=== PATIENT | female | born 1955 | race Caucasian/White ===

== ENCOUNTER → 2017-01-24 | Outpatient (CLI) | payer MEDICARE ==
[2017-01-24 12:52] LABS: ABSOLUTE EOSINOPHILS # (AUTO) 0.5 10^3/uL (0.0-0.6); ABSOLUTE LYMPHOCYTES (AUTO) 2.3 10^3/uL (0.5-4.7); ABSOLUTE MONOCYTES (AUTO) 0.4 10^3/uL (0.1-1.4); ABSOLUTE NEUT (AUTO) 3.3 10^3/uL (1.7-8.2); BASOPHILS % (AUTO) 0.7 % (0-2); EOSINOPHILS % (AUTO) 7.3 % (0-6); HEMATOCRIT 39.4 % (36.0-47.0); HEMOGLOBIN 13.2 g/dL (12.0-15.5); HGB HCT DIFFERENCE 0.2; LYMPHOCYTES % (AUTO) 35.5 % (13-45); MEAN CORPUSCULAR HEMOGLOBIN 29.2 pg (27.0-33.4); MEAN CORPUSCULAR HGB CONC 33.6 g/dL (32.0-36.0); MEAN CORPUSCULAR VOLUME 87 fl (80-97); MONOCYTES % (AUTO) 5.9 % (3-13); RED BLOOD COUNT 4.53 10^6/uL (3.72-5.28); RED CELL DISTRIBUTION WIDTH 14.3 % (11.5-14.0); SEGMENTED NEUTROPHILS % (AUTO) 50.6 % (42-78); WHITE BLOOD COUNT 6.4 10^3/uL (4.0-10.5)
[2017-01-24 13:03] LABS: APPEARANCE,URINE CLEAR; BILIRUBIN,URINE NEGATIVE (NEGATIVE); GLUCOSE, URINE NEGATIVE (NEGATIVE); KETONES,URINE NEGATIVE (NEGATIVE); LEUKOCYTE ESTERASE,URINE NEGATIVE (NEGATIVE); NITRITE,URINE NEGATIVE (NEGATIVE); PROTEIN,URINE NEGATIVE (NEGATIVE); URINE SPECIFIC GRAVITY 1.003; UROBILINOGEN,URINE NEGATIVE mg/dL (<2.0)
[2017-01-24 13:13] LABS: ANION GAP 11 (5-19); BLOOD UREA NITROGEN 13 mg/dL (7-20); CARBON DIOXIDE 27 mmol/L (22-30); CHLORIDE 104 mmol/L (98-107); CREATININE RESULT 0.79 mg/dL (0.52-1.25); GLUCOSE 100 mg/dL (75-110); SODIUM 142.1 mmol/L (137-145)
--- NOTE | 2017-01-25 09:19 | EKG REPORT ---
SEVERITY:- ABNORMAL ECG - ATRIAL-SENSED VENTRICULAR-PACED COMPLEXES : Confirmed by: Russell Hahn MD 25-Jan-2017 09:18:31
== END ==
LOC: OD 11:42
PROVIDERS: ATTEND Orthopaedic Surgery
DX: Z01.810 Encounter for preprocedural cardiovascular examination (principal); Z01.811 Encounter for preprocedural respiratory examination; Z01.818 Encounter for other preprocedural examination; Z79.899 Other long term (current) drug therapy; E11.9 Type 2 diabetes mellitus without complications; M16.12 Unilateral primary osteoarthritis, left hip
CPT/HCPCS: 36415; 71020; 80048; 81001; 83036; 85025; 93005; 93010

== ENCOUNTER 2017-03-04 05:26 | Inpatient (IN) | payer MEDICARE ==
[2017-02-21 12:30] LABS: APPEARANCE,URINE CLEAR; BILIRUBIN,URINE NEGATIVE (NEGATIVE); GLUCOSE, URINE NEGATIVE (NEGATIVE); KETONES,URINE NEGATIVE (NEGATIVE); LEUKOCYTE ESTERASE,URINE TRACE (NEGATIVE); NITRITE,URINE NEGATIVE (NEGATIVE); PROTEIN,URINE NEGATIVE (NEGATIVE); URINE SPECIFIC GRAVITY 1.002; UROBILINOGEN,URINE NEGATIVE mg/dL (<2.0)
[2017-02-21 12:35] LABS: HEMATOCRIT 38.8 % (36.0-47.0); HGB HCT DIFFERENCE 0.2; MEAN CORPUSCULAR HEMOGLOBIN 29.5 pg (27.0-33.4); MEAN CORPUSCULAR HGB CONC 33.5 g/dL (32.0-36.0); MEAN CORPUSCULAR VOLUME 88 fl (80-97); RED BLOOD COUNT 4.41 10^6/uL (3.72-5.28); RED CELL DISTRIBUTION WIDTH 13.9 % (11.5-14.0); WHITE BLOOD COUNT 6.5 10^3/uL (4.0-10.5)
[2017-02-21 13:00] LABS: ANION GAP 14 (5-19); BLOOD UREA NITROGEN 12 mg/dL (7-20); CALCIUM 9.9 mg/dL (8.4-10.2); CARBON DIOXIDE 27 mmol/L (22-30); CHLORIDE 102 mmol/L (98-107); GLUCOSE 105 mg/dL (75-110); POTASSIUM 4.6 mmol/L (3.6-5.0); SODIUM 142.8 mmol/L (137-145)
[~2017-03-04 05:26] MED LIST: BUPIVACAINE INJ/PF LIPOSOME/PF 266 MG/20 ML SDV IJ PRN; LACTATED RINGERS 1000 ML IV PRN; LIDOCAINE 0.5% INJ-PF (5 MG/ML) 50 ML SDV SUBCUT PRN
[2017-03-04] MEDS: OXYCODONE HCL SR 10 MG TABLET PO PRN ×2 (05:30→19:29)
[2017-03-04] MEDS: LANSOPRAZOLE 15 MG TAB.RAP.DR PO PRN ×3 (05:30→19:58)
[2017-03-04] MEDS: SCOPOLAMINE HYDROBROMIDE 1.5 MG PATCH.TD72 TOP PRN ×2 (05:30→19:29)
[2017-03-04] MEDS: VANCOMYCIN HCL 1,000 MG in DEXTROSE 5%-WATER 250 ML IV PRN ×2 (06:00→19:29)
[2017-03-04] MEDS ORDERED: FENTANYL CITRATE INJ/PF 100 MCG/2 ML AMPUL ONE (06:53)
[2017-03-04] MEDS ORDERED: MIDAZOLAM 2 MG/2 ML INJ ONE (06:54)
[2017-03-04] MEDS ORDERED: PROPOFOL INJ 200 MG/20 ML VIAL IV ONE (06:54)
[2017-03-04] MEDS ORDERED: TRANEXAMIC ACID INJ/PF 1,000 MG/10 ML SDV IV ONE (06:54)
[2017-03-04] MEDS ORDERED: MORPHINE SULFATE 10 MG/ML INJ ONE (06:55)
[2017-03-04] MEDS ORDERED: BUPIVACAINE INJ/PF LIPOSOME/PF 266 MG/20 ML SDV ONE (07:09)
[2017-03-04] MEDS ORDERED: THROMBIN (BOVINE) 5000 UNIT EPITAXIS KIT ONE (07:09)
[2017-03-04] MEDS ORDERED: THROMBIN (BOVINE) TOPICAL 20000 UNIT VIAL ONE (07:09)
[2017-03-04] MEDS: CEFAZOLIN INJ 1 GM VIAL INJ PRN ×4 (07:26→19:58)
[2017-03-04] MEDS: IBUPROFEN 800 MG/NS 250 ML IV PRN ×6 (07:26→19:58)
[2017-03-04] MEDS ORDERED: PROMETHAZINE HCL INJ 25 MG/1 ML VIAL IV PRN ×2 (08:14)
[2017-03-04] MEDS ORDERED: MORPHINE SULFATE 10 MG/ML INJ IV PRN ×3 (08:14→08:46)
[2017-03-04] MEDS ORDERED: DIPHENHYDRAMINE HCL 50 MG/ML VIAL IV PRN ×2 (08:14→08:46)
[2017-03-04] MEDS ORDERED: FENTANYL CITRATE INJ/PF 100 MCG/2 ML AMPUL IV PRN ×3 (08:14)
[2017-03-04] MEDS ORDERED: MEPERIDINE HCL/PF INJ 25 MG/1 ML DISP.SYRIN IV PRN (08:14)
[2017-03-04] MEDS ORDERED: ONDANSETRON 4 MG TAB.RAPDIS PO PRN (08:46)
[2017-03-04] MEDS ORDERED: ACETAMINOPHEN 325 MG TABLET PO PRN (08:46)
[2017-03-04] MEDS ORDERED: ONDANSETRON HCL INJ/PF 4 MG/2 ML SDV IV PRN (08:46)
[2017-03-04] MEDS ORDERED: RINGERS SOLUTION,LACTATED 1,000 ML IV PRN (08:46)
[2017-03-04] MEDS ORDERED: MAG HYDROX/AL HYDROX/SIMETH SUSP 30 ML UDCUP PO PRN (08:46)
[2017-03-04] MEDS ORDERED: ZOLPIDEM TARTRATE 5 MG TABLET PO PRN (08:46)
--- NOTE | 2017-03-04 08:46 | Operative Report ---
Operative Report DATE OF SURGERY: 03/04/17 PREOPERATIVE DIAGNOSIS: Left hip arthritis OPERATION: Left hip arthroplasty SURGEON: AJ KWOK ANESTHESIA: Spinal TISSUE REMOVED OR ALTERED: Femoral head to pathology ESTIMATED BLOOD LOSS: 50 PROCEDURE: Implants used: Femur: Striker #4 Accolade to stem Acetabular shell:, 52 mm PSL shell Liner:, 36 mm flat cross-link polythene liner Head:. 36 chrome cobalt head -5 neck The patient is placed in a, right lateral decubitus position on the operating table. The left lower extremity and hindquarter is prepped and draped in a sterile fashion. A curvilinear incision was made over the greater trochanter a posterior approach the hip was taken. The femoral head is dislocated and the femoral neck transected using an oscillating saw. Attention was next turned to the acetabulum. Soft tissues cleared off the acetabulum using electrocautery. The acetabulum was then prepared using a series of hemispherical reamers until a 52 millimeters reamer is seated. Subsequently a 52 millimeters Sukumar PSL shell is impacted into position and secured with one screw. A standard flat 36 millimeters cross-link liner is impacted into the shell. Attention was next turned to the femur. Access is gained to the femoral canal using a box osteotome to the piriformis fossa. The femur is then prepared using a series of broaches until a number for broach is seated. A trial reduction was now performed using a 36 millimeters head with[-5] neck. Preoperative leg length was recreated and is excellent anterior posterior stability. A decision was made to proceed with the above construct. All trial implants were removed. The wound is irrigated with pulsed lavage. A number 4 stem is impacted into the femoral canal. A trial reduction was again performed with a 36 mm head and a -5 neck. Findings as previously. The hip was dislocated one last time and the final chrome-cobalt head is impacted onto the trunnion. The hip was reduced. Wound is copiously irrigated with pulsed lavage. Sent closed in layers using interrupted Vicryl followed by ancelmo. A sterile dressing is applied and the patient's returned to recovery room in satisfactory patient.
[2017-03-04] MEDS ORDERED: DEXTROSE 40% GEL 15 GM TUBE PO PRN (09:26)
[2017-03-04] MEDS ORDERED: DEXTROSE 50%-WATER SYRINGE 12.5 GM/25 ML DOSE IV PRN (09:26)
[2017-03-04] MEDS ORDERED: DEXTROSE 50%-WATER SYRINGE 25 GM/50 ML DOSE IV PRN (09:26)
[2017-03-04] MEDS ORDERED: DEXTROSE 40% GEL 15 GM TUBE X 2 PO PRN (09:26)
[2017-03-04] MEDS ORDERED: INSULIN LISPRO 100 UNIT/ML 3 ML VIAL SUBCUT PRN (09:26)
[2017-03-04] MEDS ORDERED: GLUCAGON,HUMAN RECOMB 1 MG INJ IM PRN (09:26)
[2017-03-04] MEDS: METFORMIN HCL 500 MG TABLET PO SCH ×2 (11:45→17:44)
[2017-03-04] MEDS: SENNOSIDES/DOCUSATE 8.6-50 MG 1 EACH TABLET PO SCH ×2 (11:45→17:44)
[2017-03-04] MEDS: PRENATAL VITAMIN W-O CA NO5/FE FUMARATE/FA CAPSULE PO SCH (11:45)
[2017-03-04] MEDS: SOTALOL HCL 80 MG TABLET PO SCH ×2 (11:45→19:24)
[2017-03-04] MEDS: OXYCODONE HCL SR 10 MG TABLET PO SCH ×2 (11:45→15:57)
[2017-03-04] MEDS ORDERED: PHENYLEPHRINE HCL INJ/PF 10 MG/1 ML SDV ONE (12:42)
[2017-03-04] MEDS ORDERED: DEXAMETHASONE SOD PHOSPHATE INJ 4 MG/1 ML VIAL ONE (12:42)
[2017-03-04] MEDS ORDERED: ONDANSETRON HCL INJ/PF 4 MG/2 ML SDV ONE (12:42)
[2017-03-04] MEDS: OXYCODONE HCL IR 5 MG TABLET PO PRN (12:43)
[2017-03-04] MEDS: MORPHINE SULFATE 10 MG/ML INJ IV PRN ×3 (14:29→21:36)
[2017-03-04] MEDS: AMITRIPTYLINE HCL 50 MG TABLET PO SCH (17:44)
[2017-03-04] MEDS: SIMVASTATIN 10 MG TABLET PO SCH (17:44)
[2017-03-04] MEDS: IBUPROFEN 800 MG in NORMAL SALINE 250 ML IV SCH (17:48)
[2017-03-04] MEDS ORDERED: (PENDING PHARMACY ID) (Simvastatin [Simvastatin] 20 MG) PO SCH (18:00)
[2017-03-04] MEDS ORDERED: VANCOMYCIN HCL 1,000 MG in DEXTROSE 5%-WATER 250 ML IV ONE (20:47)
[2017-03-04] MEDS: RIVAROXABAN 10 MG TABLET PO SCH (21:28)
[2017-03-05] MEDS: IBUPROFEN 800 MG in NORMAL SALINE 250 ML IV SCH ×3 (01:13→18:02)
[2017-03-05] MEDS: LANSOPRAZOLE 30 MG TAB.RAP.DR PO SCH (05:28)
[2017-03-05] MEDS: MORPHINE SULFATE 10 MG/ML INJ IV PRN (05:33)
[2017-03-05 05:52] LABS: HEMATOCRIT 31.7 % (36.0-47.0); HEMOGLOBIN 10.5 g/dL (12.0-15.5); HGB HCT DIFFERENCE -0.2; MEAN CORPUSCULAR HEMOGLOBIN 29.2 pg (27.0-33.4); MEAN CORPUSCULAR HGB CONC 33.2 g/dL (32.0-36.0); MEAN CORPUSCULAR VOLUME 88 fl (80-97); RED CELL DISTRIBUTION WIDTH 13.6 % (11.5-14.0); WHITE BLOOD COUNT 10.9 10^3/uL (4.0-10.5)
[2017-03-05 06:12] LABS: ANION GAP 10 (5-19); BLOOD UREA NITROGEN 19 mg/dL (7-20); CALCIUM 8.9 mg/dL (8.4-10.2); CARBON DIOXIDE 27 mmol/L (22-30); CHLORIDE 101 mmol/L (98-107); CREATININE RESULT 1.17 mg/dL (0.52-1.25); GLUCOSE 125 mg/dL (75-110); POTASSIUM 5.1 mmol/L (3.6-5.0); SODIUM 137.8 mmol/L (137-145)
[2017-03-05] MEDS: OXYCODONE HCL IR 5 MG TABLET PO PRN (06:19)
--- NOTE | 2017-03-05 06:54 | PDOC PROGRESS REPORT ---
Subjective Progress Note for:: 03/05/17 Subjective:: Patient complaining of pain from her hip to her ankle Physical Exam Vital Signs: Temp Pulse Resp BP Pulse Ox 36.8 C 78 19 97/51 L 92 03/05/17 04:00 03/05/17 04:00 03/05/17 04:00 03/05/17 04:00 03/05/17 04:00 Intake & Output 03/03/17 03/04/17 03/05/17 06:59 06:59 06:59 Intake Total 0 5028 Output Total 3670 Balance 0 1358 Weight 108.2 kg General appearance: PRESENT: mild distress, obese Head exam: PRESENT: normocephalic Eye exam: PRESENT: EOMI Respiratory exam: PRESENT: unlabored Cardiovascular exam: PRESENT: RRR Pulses: PRESENT: +1 pedal pulses bilateral Vascular exam: PRESENT: normal capillary refill GI/Abdominal exam: PRESENT: soft Rectal exam: PRESENT: deferred Musculoskeletal exam: PRESENT: other - Left hip thania dressing clean dry and intact. Leg lengths are equal. Distal neurovascular examinations intact. Neurological exam: PRESENT: alert, awake, oriented to person, oriented to place , oriented to time, oriented to situation. ABSENT: motor sensory deficit Psychiatric exam: PRESENT: appropriate affect, normal mood. ABSENT: homicidal ideation, suicidal ideation Skin exam: PRESENT: dry, intact, warm. ABSENT: cyanosis, rash Results Laboratory Results: 03/05/17 05:21 03/05/17 05:21 03/04/17 03/05/17 03/05/17 06:00 05:21 05:21 WBC 10.9 H RBC 3.60 L Hgb 10.5 L Hct 31.7 L MCV 88 MCH 29.2 MCHC 33.2 RDW 13.6 Plt Count 190 Sodium 137.8 Potassium 5.1 H Chloride 101 Carbon Dioxide 27 Anion Gap 10 BUN 19 Creatinine 1.17 Est GFR ( Amer) 57 L Est GFR (Non-Af Amer) 47 L Glucose 125 H Calcium 8.9 Blood Type A POSITIVE Antibody Screen NEGATIVE Impressions: Pelvis X-Ray 03/04/17 08:48 IMPRESSION: SATISFACTORY POSTOPERATIVE LEFT HIP. Status: Imported from PACS Assessment & Plan - Diagnosis (1) Arthritis of left hip Is this a current diagnosis for this admission?: YesPlan: 61-year-old white female postop day 1 from left hip arthroplasty. Hematocrit remains above 31%. Blood glucoses control between 94 and 144. Patient makes little progress with physical therapy secondary to pain. Anticipate a half-way facility placement on - Time Time Spent with patient: 15-24 minutes Anticipated discharge: SNF Within: within 48 hours
[2017-03-05] MEDS: CITALOPRAM HYDROBROMIDE 20 MG TABLET PO SCH (07:59)
[2017-03-05] MEDS: CETIRIZINE 10 MG TABLET PO SCH (08:00)
[2017-03-05] MEDS: MORPHINE SULFATE 10 MG/ML INJ IM PRN ×3 (08:00→16:50)
[2017-03-05] MEDS ORDERED: (PENDING PHARMACY ID) (Citalopram Hydrobromide [Citalopram Hbr] 40 MG) PO SCH (08:00)
[2017-03-05] MEDS: METFORMIN HCL 500 MG TABLET PO SCH ×2 (10:28→17:58)
[2017-03-05] MEDS: SENNOSIDES/DOCUSATE 8.6-50 MG 1 EACH TABLET PO SCH ×2 (10:28→17:58)
[2017-03-05] MEDS: PRENATAL VITAMIN W-O CA NO5/FE FUMARATE/FA CAPSULE PO SCH (10:28)
[2017-03-05] MEDS: OXYCODONE HCL SR 10 MG TABLET PO SCH ×2 (10:28→21:47)
[2017-03-05] MEDS: SOTALOL HCL 80 MG TABLET PO SCH ×2 (10:30→17:57)
[2017-03-05] MEDS ORDERED: ALBUTEROL SULFATE HFA (90 MCG/PUFF) 8 GM MDI (1 MDI/ER DISP) IH PRN (10:56)
[2017-03-05] MEDS ORDERED: FUROSEMIDE INJ/PF 20 MG/2 ML SDV IV ONE (10:58)
[2017-03-05 11:51] LABS: CREATINE KINASE MB 2.24 ng/mL (<4.55)
[2017-03-05 12:00] LABS: TROPONIN I < 0.012 ng/mL
[2017-03-05 12:52] LABS: PROTHROMBIN TIME 16.7 SEC (11.4-15.4)
--- NOTE | 2017-03-05 17:31 | EKG REPORT ---
SEVERITY:- ABNORMAL ECG - SINUS RHYTHM AND (A PACED) VENTRICULAR PACING : Confirmed by: Russell Hahn MD 05-Mar-2017 17:31:11
[2017-03-05] MEDS: FLUTICASONE NASAL SPRAY 50 MCG/SPRY 120 SPRAY/16 GM NASL SCH (17:58)
[2017-03-05] MEDS: AMITRIPTYLINE HCL 50 MG TABLET PO SCH (17:58)
[2017-03-05] MEDS: SIMVASTATIN 10 MG TABLET PO SCH (17:58)
--- NOTE | 2017-03-05 20:28 | PDOC CONSULTATION ---
Consultation Consult Date: 03/05/17 Attending physician:: AJ KWOK Consult reason:: Hypoxia, shortness of breath History of Present Illness Admission Date/PCP: 03/04/17 05:26 JOHN MCKEON History of Present Illness: KIM SUMMERS is a 61 year old female with past medical history significant for diabetes mellitus, anemia, depression/anxiety, DJD, previous TIAs, seizure disorder, hypertension, hyperlipidemia, CHF, CAD, atrial fibrillation, sick sinus syndrome status post pacemaker, colon cancer, DVT of the left leg, asthma , untreated sleep apnea, morbid obesity who developed a sudden onset of increased shortness of breath while walking. Patient does complain of leg swelling but denies PND, orthopnea. Patient does complain of leg pain. Patient saturation is reported to have gone down to the 80s and improved after adding oxygen. Currently patient denies any active shortness of breath. Past Medical History Past Medical History: diabetes mellitus, anemia, depression/anxiety, DJD, previous TIAs, seizure disorder, hypertension, hyperlipidemia, CHF, CAD, atrial fibrillation, sick sinus syndrome status post pacemaker, colon cancer, DVT of the left leg, asthma , untreated sleep apnea, morbid obesity Cardiac Medical History: Reports: Atrial Fibrillation, Congestive Heart Failure , Coronary Artery Disease, Myocardial Infarction, Hyperlipidema, Hypertension - on meds Denies: Peripheral Vascular Disease, Pulmonary Embolism, Heart Murmur Pulmonary Medical History: Reports: Asthma, Pneumonia - many years ago, Sleep Apnea - does not use her CPAP Denies: Bronchitis, Chronic Obstructive Pulmonary Disease (COPD), Respiratory Failure, Tuberculosis Neurological Medical History: Reports: Seizures - x 1 5 years ago no meds Endocrine Medical History: Denies: Hyperthyroidism, Hypothyroidism Renal/ Medical History: Denies: End Stage Renal Disease Malignancy Medical History: Denies: Leukemia, Lung Cancer GI Medical History: Denies: Crohn's Disease, Gastroesophageal Reflux Disease, Hiatal Hernia Musculoskeltal Medical History: Reports: Arthritis Denies: Fibromyalgia Psychiatric Medical History: Reports: Depression Denies: Bipolar Disorder, Dementia, Post Traumatic Stress Disorder Hematology: Reports: Anemia - Blood Transfusion after hysterectomy Denies: Hemophilia, Sickle Cell Disease Infectious Medical History: Denies: HIV Past Surgical History Past Surgical History: Reports: Appendectomy, Cholecystectomy, Hysterectomy, Pacemaker - pacemaker dependent, Tonsillectomy, Tubal Ligation Denies: Amputation, Section, Colostomy, Coronary Artery Bypass Graft , Gastric Bypass Surgery, Herniorrhaphy, Mastectomy Social History Smoking Status: Never Smoker Frequency of Alcohol Use: None Hx Recreational Drug Use: No Hx Prescription Drug Abuse: No - Advance Directive Resuscitation Status: Full Code Surrogate healthcare decision maker:: Family History Family History: Malignancy Parental Family History Reviewed: Yes Children Family History Reviewed: No Sibling(s) Family History Reviewed.: No Medication/Allergy Home Medications: Albuterol Sulfate [Ventolin Hfa] 2 puff IH Q4HP PRN 03/04/17 Amitriptyline HCl [Elavil 50 mg Tablet] 50 mg PO QHS 03/04/17 Citalopram Hydrobromide [Celexa 40 mg Tablet] 40 mg PO DAILY 03/04/17 Fluticasone Propionate [Flonase Nasal [place] 50 Mcg/[place] 16 gm] 1 spray NASL QPM 03/04/17 Metformin HCl [Glucophage] 500 mg PO BIDBS 03/04/17 Multivitamin [Tab-A-Will] 1 tab PO DAILY 03/04/17 Simvastatin [Zocor 20 mg Tablet] 20 mg PO DAILY 03/04/17 Sotalol HCl [Sotalol] 80 mg PO Q12 03/04/17 Tramadol HCl [Ultram 50 mg Tablet] 50 mg PO Q6HP PRN 03/04/17 Allergies/Adverse Reactions: atropine Allergy (Severe, Verified 09/05/16 12:00) STOPS RESPIRATORY DRIVE Review of Systems Constitutional: ABSENT: chills, fever(s), headache(s), weight gain, weight loss Eyes: ABSENT: visual disturbances Ears: ABSENT: hearing changes Cardiovascular: PRESENT: dyspnea on exertion, edema. ABSENT: chest pain, orthropnea, palpitations Respiratory: PRESENT: dyspnea. ABSENT: cough, hemoptysis, sputum Gastrointestinal: ABSENT: abdominal pain, constipation, diarrhea, hematemesis, hematochezia, melena, nausea, vomiting Genitourinary: ABSENT: dysuria, hematuria Musculoskeletal: PRESENT: joint swelling Integumentary: ABSENT: rash, wounds Neurological: ABSENT: abnormal gait, abnormal speech, confusion, dizziness, focal weakness, syncope Psychiatric: ABSENT: anxiety, depression, homidical ideation, suicidal ideation Endocrine: ABSENT: cold intolerance, heat intolerance, polydipsia, polyuria Hematologic/Lymphatic: ABSENT: easy bleeding, easy bruising Physical Exam Vital Signs: Temp Pulse Resp BP Pulse Ox 99.1 F 79 16 108/51 L 96 03/05/17 14:27 03/05/17 14:27 03/05/17 14:27 03/05/17 14:27 03/05/17 16:05 Intake & Output 03/04/17 03/05/17 03/06/17 06:59 06:59 06:59 Intake Total 0 5028 1882 Output Total 3670 1100 Balance 0 1358 782 Weight 108.2 kg General appearance: PRESENT: no acute distress, morbidly obese, well-developed, well-nourished Head exam: PRESENT: atraumatic, normocephalic Eye exam: PRESENT: conjunctiva pink, EOMI, PERRLA. ABSENT: scleral icterus Ear exam: PRESENT: normal external ear exam Mouth exam: PRESENT: moist, tongue midline Neck exam: ABSENT: JVD, lymphadenopathy, thyromegaly, tracheal deviation Respiratory exam: PRESENT: clear to auscultation adalberto, symmetrical, unlabored. ABSENT: crackles, rales, rhonchi, tachypnea, wheezes Cardiovascular exam: PRESENT: RRR, systolic murmur. ABSENT: diastolic murmur, rubs Pulses: PRESENT: normal dorsalis pedis pul Vascular exam: PRESENT: normal capillary refill GI/Abdominal exam: PRESENT: hypoactive bowel sounds, soft. ABSENT: distended, firm, guarding, mass, Lopes's sign, organolmegaly, rebound, rigid, tenderness Rectal exam: PRESENT: deferred Extremities exam: ABSENT: clubbing, pedal edema Neurological exam: PRESENT: alert, awake, oriented to person, oriented to place , oriented to time, oriented to situation, CN II-XII grossly intact. ABSENT: motor sensory deficit Psychiatric exam: PRESENT: appropriate affect, normal mood. ABSENT: homicidal ideation, suicidal ideation Skin exam: PRESENT: dry, intact, warm. ABSENT: cyanosis, rash Results Laboratory Results: 03/05/17 05:21 03/05/17 05:21 03/05/17 03/05/17 05:21 05:21 WBC 10.9 H RBC 3.60 L Hgb 10.5 L Hct 31.7 L MCV 88 MCH 29.2 MCHC 33.2 RDW 13.6 Plt Count 190 Sodium 137.8 Potassium 5.1 H Chloride 101 Carbon Dioxide 27 Anion Gap 10 BUN 19 Creatinine 1.17 Est GFR ( Amer) 57 L Est GFR (Non-Af Amer) 47 L Glucose 125 H Calcium 8.9 03/05/17 03/05/17 11:06 11:06 Creatine Kinase 568 H CK-MB (CK-2) 2.24 Troponin I < 0.012 Impressions: Pelvis X-Ray 03/04/17 08:48 IMPRESSION: SATISFACTORY POSTOPERATIVE LEFT HIP. Chest X-Ray 03/05/17 00:00 IMPRESSION: Stable cardiomegaly Lung Scan-VQ NM 03/05/17 00:00 IMPRESSION: Matching ventilation perfusion defects. Low probability pulmonary embolus. Assessment & Plan - Diagnosis (1) Hypoxia Is this a current diagnosis for this admission?: YesPlan: Will obtain chest x-ray, VQ scan, and repeat labs. Concerned that patient may have a PE or developing pneumonia as patient surgery appears to be several days ago. Given incentive spirometry. (2) Asthma Qualifiers: Asthma severity: unspecified severity Asthma complication type: uncomplicated Qualified Code(s): J45.909 - Unspecified asthma, uncomplicated Is this a current diagnosis for this admission?: YesPlan: When necessary albuterol (3) Coronary artery disease Qualifiers: Coronary Disease-Associated Artery/Lesion type: [place] artery [place] vs. transplanted heart: [place] heart Associated angina: without angina Qualified Code(s): I25.10 - Atherosclerotic heart disease of [place] coronary artery without angina pectoris Is this a current diagnosis for this admission?: Yes (4) Personal history of DVT (deep vein thrombosis) Is this a current diagnosis for this admission?: YesPlan: In light of this, will check a VQ scan. Concern for underlying PE. (5) Congestive heart failure Qualifiers: Congestive heart failure type: unspecified congestive heart failure type Congestive heart failure chronicity: unspecified congestive heart failure chronicity Qualified Code(s): I50.9 - Heart failure, unspecified Is this a current diagnosis for this admission?: YesPlan: Concern for volume overload. Will stop IV fluids and give patient 1 time dose of Lasix. (6) Sleep apnea Qualifiers: Sleep apnea type: unspecified type Qualified Code(s): G47.30 - Sleep apnea, unspecified Is this a current diagnosis for this admission?: YesPlan: Encourage evaluation as an outpatient (7) Morbid obesity with alveolar hypoventilation Is this a current diagnosis for this admission?: YesPlan: Encourage weight loss (8) History of pacemaker Is this a current diagnosis for this admission?: Yes (9) Sick sinus syndrome Is this a current diagnosis for this admission?: YesPlan: Patient is currently paced - Time Time Spent: Greater than 70 Minutes Medications reviewed and adjusted accordingly: Yes Anticipated discharge: Acute Rehab
[2017-03-05] MEDS: RIVAROXABAN 10 MG TABLET PO SCH (21:47)
[2017-03-05] MEDS ORDERED: CEFTRIAXONE 1 GM/D5W RTU 1 GM/50 ML RTUPB IV SCH (22:00)
[2017-03-06] MEDS: IBUPROFEN 800 MG in NORMAL SALINE 250 ML IV SCH ×2 (01:26→10:14)
[2017-03-06 05:10] LABS: HEMOGLOBIN 9.8 g/dL (12.0-15.5); HGB HCT DIFFERENCE 0.4; MEAN CORPUSCULAR HEMOGLOBIN 29.7 pg (27.0-33.4); MEAN CORPUSCULAR VOLUME 87 fl (80-97); RED BLOOD COUNT 3.32 10^6/uL (3.72-5.28); RED CELL DISTRIBUTION WIDTH 13.5 % (11.5-14.0); WHITE BLOOD COUNT 8.9 10^3/uL (4.0-10.5)
[2017-03-06] MEDS: LANSOPRAZOLE 30 MG TAB.RAP.DR PO SCH (05:52)
--- NOTE | 2017-03-06 07:31 | PDOC PROGRESS REPORT ---
Subjective Progress Note for:: 03/06/17 Subjective:: Patient with decreased oxygen saturation yesterday which initiated a hospitalist consult. Concern raised for potentially either CHF for pulmonary embolism. Tests ordered and not completed. Physical Exam Vital Signs: Temp Pulse Resp BP Pulse Ox 36.4 C 94 20 111/54 L 90 L 03/05/17 23:23 03/05/17 23:23 03/05/17 23:23 03/05/17 23:23 03/05/17 23:23 Intake & Output 03/05/17 03/06/17 03/07/17 06:59 06:59 06:59 Intake Total 5028 2132 Output Total 3670 1800 Balance 1358 332 Weight 108.2 kg 110.1 kg General appearance: PRESENT: no acute distress Head exam: PRESENT: normocephalic Eye exam: PRESENT: EOMI Respiratory exam: PRESENT: unlabored Cardiovascular exam: PRESENT: RRR Pulses: PRESENT: +1 pedal pulses bilateral Vascular exam: PRESENT: normal capillary refill GI/Abdominal exam: PRESENT: soft Extremities exam: PRESENT: other - Left hip dressing clean dry and intact. Leg lengths are equal. Neurovascular examinations intact. Neurological exam: PRESENT: alert, awake, oriented to person, oriented to place , oriented to time, oriented to situation, CN II-XII grossly intact. ABSENT: motor sensory deficit Psychiatric exam: PRESENT: appropriate affect, normal mood. ABSENT: homicidal ideation, suicidal ideation Skin exam: PRESENT: dry, intact, warm. ABSENT: cyanosis, rash Results Laboratory Results: 03/06/17 04:40 03/05/17 05:21 03/06/17 04:40 WBC 8.9 RBC 3.32 L Hgb 9.8 L Hct 29.0 L MCV 87 MCH 29.7 MCHC 34.0 RDW 13.5 Plt Count 175 03/05/17 03/05/17 11:06 11:06 Creatine Kinase 568 H CK-MB (CK-2) 2.24 Troponin I < 0.012 Impressions: Pelvis X-Ray 03/04/17 08:48 IMPRESSION: SATISFACTORY POSTOPERATIVE LEFT HIP. Chest X-Ray 03/05/17 00:00 IMPRESSION: Stable cardiomegaly Lung Scan-VQ NM 03/05/17 00:00 IMPRESSION: Matching ventilation perfusion defects. Low probability pulmonary embolus. Status: Imported from PACS Assessment & Plan - Diagnosis (1) Arthritis of left hip Is this a current diagnosis for this admission?: Yes - Plan Summary Plan Summary: Patient will continue with physical therapy today and anticipate discharge to half-way facility tomorrow
[2017-03-06] MEDS: CITALOPRAM HYDROBROMIDE 20 MG TABLET PO SCH (08:11)
[2017-03-06] MEDS: CETIRIZINE 10 MG TABLET PO SCH (08:11)
[2017-03-06] MEDS: OXYCODONE HCL IR 5 MG TABLET PO PRN ×3 (08:34→21:40)
[2017-03-06 09:10] LABS: APPEARANCE,URINE CLEAR; BILIRUBIN,URINE NEGATIVE (NEGATIVE); GLUCOSE, URINE NEGATIVE (NEGATIVE); KETONES,URINE NEGATIVE (NEGATIVE); LEUKOCYTE ESTERASE,URINE NEGATIVE (NEGATIVE); NITRITE,URINE NEGATIVE (NEGATIVE); PROTEIN,URINE NEGATIVE (NEGATIVE); URINE SPECIFIC GRAVITY 1.009; UROBILINOGEN,URINE NEGATIVE mg/dL (<2.0)
[2017-03-06 09:40] LABS: HEMATOCRIT 29.5 % (36.0-47.0); HEMOGLOBIN 10.1 g/dL (12.0-15.5); HGB HCT DIFFERENCE 0.8; MEAN CORPUSCULAR HEMOGLOBIN 29.8 pg (27.0-33.4); MEAN CORPUSCULAR HGB CONC 34.2 g/dL (32.0-36.0); MEAN CORPUSCULAR VOLUME 87 fl (80-97); RED BLOOD COUNT 3.39 10^6/uL (3.72-5.28); RED CELL DISTRIBUTION WIDTH 13.5 % (11.5-14.0); WHITE BLOOD COUNT 7.5 10^3/uL (4.0-10.5)
[2017-03-06 10:01] LABS: ANION GAP 10 (5-19); BLOOD UREA NITROGEN 18 mg/dL (7-20); CALCIUM 8.9 mg/dL (8.4-10.2); CARBON DIOXIDE 26 mmol/L (22-30); CHLORIDE 101 mmol/L (98-107); CREATININE RESULT 0.99 mg/dL (0.52-1.25); GLUCOSE 118 mg/dL (75-110); POTASSIUM 4.2 mmol/L (3.6-5.0); SODIUM 137.1 mmol/L (137-145)
[2017-03-06] MEDS: PRENATAL VITAMIN W-O CA NO5/FE FUMARATE/FA CAPSULE PO SCH (10:10)
[2017-03-06] MEDS: SENNOSIDES/DOCUSATE 8.6-50 MG 1 EACH TABLET PO SCH ×2 (10:10→17:25)
[2017-03-06] MEDS: METFORMIN HCL 500 MG TABLET PO SCH ×2 (10:10→17:26)
[2017-03-06] MEDS: SOTALOL HCL 80 MG TABLET PO SCH ×2 (10:19→17:26)
[2017-03-06] MEDS ORDERED: FUROSEMIDE 20 MG TABLET PO ONE (14:00)
[2017-03-06] MEDS: AMITRIPTYLINE HCL 50 MG TABLET PO SCH (17:25)
[2017-03-06] MEDS: FLUTICASONE NASAL SPRAY 50 MCG/SPRY 120 SPRAY/16 GM NASL SCH (17:26)
[2017-03-06] MEDS: SIMVASTATIN 10 MG TABLET PO SCH (17:26)
[2017-03-06] MEDS ORDERED: BISACODYL 10 MG SUPP.RECT PR PRN (18:13)
--- NOTE | 2017-03-06 18:17 | PDOC PROGRESS REPORT ---
Subjective Progress Note for:: 03/06/17 Subjective:: Patient reports she is breathing much better today. Patient has been weaned off of oxygen. Patient denies chest pain, shortness of breath, abdominal pain, nausea, vomiting , fevers, chills, diarrhea, constipation, headache, new onset weakness. Physical Exam Vital Signs: Temp Pulse Resp BP Pulse Ox 98.1 F 86 16 106/53 L 97 03/06/17 16:00 03/06/17 16:00 03/06/17 16:00 03/06/17 16:00 03/06/17 16:00 Intake & Output 03/05/17 03/06/17 03/07/17 06:59 06:59 06:59 Intake Total 5028 2132 Output Total 3670 1800 Balance 1358 332 Weight 108.2 kg 110.1 kg Exam: General: Awake alert and oriented x3, no acute respiratory distress HEENT: AT/NC, PERRL, EOMI, oropharynx is moist, pink, no scleral icterus, no conjunctival injection Neck: No JVD, trachea midline Chest: Bilateral bibasilar crackles CV: Regular rate and rhythm, normal S1 and S2, no murmur, rub, or gallop Abdomen: Soft, nontender to palpation, nondistended, active bowel sounds; no rebound, rigidity, or guarding Extremities: No cyanosis, clubbing or edema Neuro: Cranial nerves II through XII are grossly intact without focal deficits; awake alert and oriented x3 Psych: Normal mood and affect Results Laboratory Results: 03/06/17 09:11 03/06/17 09:11 03/06/17 03/06/17 03/06/17 04:40 08:50 09:11 WBC 8.9 RBC 3.32 L Hgb 9.8 L Hct 29.0 L MCV 87 MCH 29.7 MCHC 34.0 RDW 13.5 Plt Count 175 Sodium 137.1 Potassium 4.2 Chloride 101 Carbon Dioxide 26 Anion Gap 10 BUN 18 Creatinine 0.99 Est GFR ( Amer) > 60 Est GFR (Non-Af Amer) 57 L Glucose 118 H Calcium 8.9 Urine Color YELLOW Urine Appearance CLEAR Urine pH 5.0 Ur Specific [place] 1.009 Urine Protein NEGATIVE Urine Glucose (UA) NEGATIVE Urine Ketones NEGATIVE Urine Blood NEGATIVE Urine Nitrite NEGATIVE Ur Leukocyte Esterase NEGATIVE Urine WBC (Auto) 4 Urine RBC (Auto) 1 04/12/17 09:11 WBC 7.5 RBC 3.39 L Hgb 10.1 L Hct 29.5 L MCV 87 MCH 29.8 MCHC 34.2 RDW 13.5 Plt Count 170 Sodium Potassium Chloride Carbon Dioxide Anion Gap BUN Creatinine Est GFR ( Amer) Est GFR (Non-Af Amer) Glucose Calcium Urine Color Urine Appearance Urine pH Ur Specific [place] Urine Protein Urine Glucose (UA) Urine Ketones Urine Blood Urine Nitrite Ur Leukocyte Esterase Urine WBC (Auto) Urine RBC (Auto) 03/05/17 03/05/17 11:06 11:06 Creatine Kinase 568 H CK-MB (CK-2) 2.24 Troponin I < 0.012 Impressions: Pelvis X-Ray 03/04/17 08:48 IMPRESSION: SATISFACTORY POSTOPERATIVE LEFT HIP. Chest X-Ray 03/05/17 00:00 IMPRESSION: Stable cardiomegaly Lung Scan-VQ NM 03/05/17 00:00 IMPRESSION: Matching ventilation perfusion defects. Low probability pulmonary embolus. Assessment & Plan - Diagnosis (1) Hypoxia Is this a current diagnosis for this admission?: YesPlan: This was likely secondary to iatrogenic volume overload. Patient does have history of congestive heart failure. We will continue Lasix today. (2) Asthma Qualifiers: Asthma severity: unspecified severity Asthma complication type: uncomplicated Qualified Code(s): J45.909 - Unspecified asthma, uncomplicated Is this a current diagnosis for this admission?: YesPlan: When necessary albuterol (3) Coronary artery disease Qualifiers: Coronary Disease-Associated Artery/Lesion type: [place] artery [place] vs. transplanted heart: [place] heart Associated angina: without angina Qualified Code(s): I25.10 - Atherosclerotic heart disease of [place] coronary artery without angina pectoris Is this a current diagnosis for this admission?: Yes (4) Personal history of DVT (deep vein thrombosis) Is this a current diagnosis for this admission?: Yes (5) Congestive heart failure Qualifiers: Congestive heart failure type: unspecified congestive heart failure type Congestive heart failure chronicity: unspecified congestive heart failure chronicity Qualified Code(s): I50.9 - Heart failure, unspecified Is this a current diagnosis for this admission?: YesPlan: Patient much improved after IV Lasix. Will resume this today. Likely secondary to diastolic heart failure. Patient has an outpatient major gifts officer and prefers to have her workup with this person. (6) Sleep apnea Qualifiers: Sleep apnea type: unspecified type Qualified Code(s): G47.30 - Sleep apnea, unspecified Is this a current diagnosis for this admission?: YesPlan: Encourage evaluation as an outpatient (7) Sick sinus syndrome Is this a current diagnosis for this admission?: YesPlan: Patient is currently paced. She is also a sotalol (8) History of pacemaker Is this a current diagnosis for this admission?: Yes (9) Morbid obesity with alveolar hypoventilation Is this a current diagnosis for this admission?: YesPlan: Encourage weight loss - Time Time Spent with patient: 25-34 minutes - Inpatient Certification Post Hospital Care: D/C Carpet Installer Documentation
[2017-03-06] MEDS: ENOXAPARIN SODIUM INJ 120 MG/0.8 ML DISP.SYRIN SUBCUT SCH (21:40)
[2017-03-06] MEDS ORDERED: WARFARIN SODIUM 5 MG TABLET PO SCH (22:00)
[2017-03-07] MEDS: MORPHINE SULFATE 10 MG/ML INJ IV PRN ×2 (01:57→10:22)
[2017-03-07 05:51] LABS: HEMATOCRIT 29.6 % (36.0-47.0); HGB HCT DIFFERENCE 0.4; MEAN CORPUSCULAR HEMOGLOBIN 29.6 pg (27.0-33.4); MEAN CORPUSCULAR HGB CONC 33.9 g/dL (32.0-36.0); MEAN CORPUSCULAR VOLUME 87 fl (80-97); RED BLOOD COUNT 3.39 10^6/uL (3.72-5.28); RED CELL DISTRIBUTION WIDTH 13.4 % (11.5-14.0); WHITE BLOOD COUNT 8.4 10^3/uL (4.0-10.5)
[2017-03-07] MEDS: LANSOPRAZOLE 30 MG TAB.RAP.DR PO SCH (05:52)
--- NOTE | 2017-03-07 06:55 | PDOC TRANSFER SUMMARY ---
General - Admit/Disc Date/PCP Admission Date/Primary Care Provider: 03/04/17 05:26 JOHN MCKEON Discharge Date: 03/07/17 - Discharge Diagnosis (1) Arthritis of left hip Is this a current diagnosis for this admission?: Yes (3) Personal history of DVT (deep vein thrombosis) Is this a current diagnosis for this admission?: Yes - Additional Information Resuscitation Status: Full Code Discharge Diet: As Tolerated, Regular Discharge Activity: Activity As Tolerated, Balance Activity w/Rest Home Medications: Albuterol Sulfate [Ventolin Hfa] 2 puff IH Q4HP PRN 03/04/17 Amitriptyline HCl [Elavil 50 mg Tablet] 50 mg PO QHS 03/04/17 Citalopram Hydrobromide [Celexa 40 mg Tablet] 40 mg PO DAILY 03/04/17 Fluticasone Propionate [Flonase Nasal [place] 50 Mcg/[place] 16 gm] 1 spray NASL QPM 03/04/17 Metformin HCl [Glucophage] 500 mg PO BIDBS 03/04/17 Multivitamin [Tab-A-Will] 1 tab PO DAILY 03/04/17 Simvastatin [Zocor 20 mg Tablet] 20 mg PO DAILY 03/04/17 Sotalol HCl [Sotalol] 80 mg PO Q12 03/04/17 Tramadol HCl [Ultram 50 mg Tablet] 50 mg PO Q6HP PRN 03/04/17 Amitriptyline HCl [Elavil 50 mg Tablet] 50 mg PO QPM #0 tablet 03/07/17 Citalopram Hydrobromide [Celexa 20 mg Tablet] 40 mg PO QAM #0 tablet 03/07/17 Enoxaparin Sodium [Lovenox Inj 120 mg/0.8 ml Disp.syrin] 110 mg SUBCUT Q12 #0 disp.syrin 03/07/17 Oxycodone HCl [Oxy-Ir 5 mg Tablet] 5 mg PO Q6HP PRN #0 tablet 03/07/17 Sotalol HCl [Betapace 80 mg Tablet] 80 mg PO BID #0 tablet 03/07/17 Warfarin Sodium [Coumadin 5 mg Tablet] 5 mg PO QHS #0 tablet 03/07/17 History of Present Illness Admission Date/PCP: 03/04/17 05:26 JOHN MCKEON History of Present Illness: Patient's a 61-year-old white female with multiple medical comorbidities who presents with progressive left hip pain and functional disability secondary osteoarthritis. She is now admitted for elective left hip arthroplasty. Hospital Course Hospital Course: Patient is admitted through the operating room where she undergoes noncontact a left hip arthroplasty. She's returned to floor in satisfactory condition. She has significant problems with pain control initially which limits her participation with physical therapy. As the pain gets under better control. The patient makes progress with visible therapy. Diabetes is well managed on her current regimen. Patient has an episode of hypoxemia and is seen by the hospitalist service. The hospitalist recommends DVT prophylaxis with Coumadin. Hence, the xarelto is stopped. Lovenox was started. Coumadin is started. Patient makes progress with physical therapy and is ready for transfer to a [facility] facility. Physical Exam Vital Signs: Temp Pulse Resp BP Pulse Ox 37.0 C 94 20 108/60 94 03/07/17 00:52 03/07/17 00:52 03/07/17 00:52 03/07/17 00:52 03/07/17 00:52 Intake & Output 03/05/17 03/06/17 03/07/17 06:59 06:59 06:59 Intake Total 5028 2132 980 Output Total 3670 1800 1400 Balance 1358 332 -420 Weight 108.2 kg 110.1 kg General appearance: PRESENT: no acute distress Head exam: PRESENT: normocephalic Eye exam: PRESENT: EOMI Respiratory exam: PRESENT: unlabored Cardiovascular exam: PRESENT: RRR Pulses: PRESENT: +1 pedal pulses bilateral Vascular exam: PRESENT: normal capillary refill GI/Abdominal exam: PRESENT: soft Rectal exam: PRESENT: deferred Musculoskeletal exam: PRESENT: other - Left hip wound is covered with the april dressing. The dressings clean dry and intact. Leg lengths are equal. Distal neurovascular examinations intact. Neurological exam: PRESENT: alert, awake, oriented to person, oriented to place , oriented to time, oriented to situation. ABSENT: motor sensory deficit Psychiatric exam: PRESENT: appropriate affect, normal mood. ABSENT: homicidal ideation, suicidal ideation Skin exam: PRESENT: dry, intact, warm. ABSENT: cyanosis, rash Results Laboratory Results: 03/07/17 05:38 03/06/17 09:11 03/06/17 03/06/17 03/06/17 08:50 09:11 09:11 WBC 7.5 RBC 3.39 L Hgb 10.1 L Hct 29.5 L MCV 87 MCH 29.8 MCHC 34.2 RDW 13.5 Plt Count 170 Sodium 137.1 Potassium 4.2 Chloride 101 Carbon Dioxide 26 Anion Gap 10 BUN 18 Creatinine 0.99 Est GFR ( Amer) > 60 Est GFR (Non-Af Amer) 57 L Glucose 118 H Calcium 8.9 Urine Color YELLOW Urine Appearance CLEAR Urine pH 5.0 Ur Specific [place] 1.009 Urine Protein NEGATIVE Urine Glucose (UA) NEGATIVE Urine Ketones NEGATIVE Urine Blood NEGATIVE Urine Nitrite NEGATIVE Ur Leukocyte Esterase NEGATIVE Urine WBC (Auto) 4 Urine RBC (Auto) 1 03/07/17 05:38 WBC 8.4 RBC 3.39 L Hgb 10.0 L Hct 29.6 L MCV 87 MCH 29.6 MCHC 33.9 RDW 13.4 Plt Count 185 Sodium Potassium Chloride Carbon Dioxide Anion Gap BUN Creatinine Est GFR ( Amer) Est GFR (Non-Af Amer) Glucose Calcium Urine Color Urine Appearance Urine pH Ur Specific [place] Urine Protein Urine Glucose (UA) Urine Ketones Urine Blood Urine Nitrite Ur Leukocyte Esterase Urine WBC (Auto) Urine RBC (Auto) 03/05/17 03/05/17 11:06 11:06 Creatine Kinase 568 H CK-MB (CK-2) 2.24 Troponin I < 0.012 Impressions: Pelvis X-Ray 03/04/17 08:48 IMPRESSION: SATISFACTORY POSTOPERATIVE LEFT HIP. Chest X-Ray 03/05/17 00:00 IMPRESSION: Stable cardiomegaly Lung Scan-VQ NM 03/05/17 00:00 IMPRESSION: Matching ventilation perfusion defects. Low probability pulmonary embolus. Status: Imported from PACS Transfer Plan - Disposition Transfer Plan: Patient to be transferred to [facility] facility for ongoing physical therapy. April dressing can be changed on postop day #7, and converted to an OpSite. INRs and coagulation parameters should be checked daily for the coming 4 days. Lovenox administration. Should continue twice a day until INR reaches 2.0. Coumadin can then be adjusted for an INR of 2-2.5. Follow-up can be with Dr. Cabrales in the [facility] for surgery in 2 weeks for staple removal - Time Spent with Patient Time spent with patient: Greater than 30 Minutes
[2017-03-07 07:56] VITALS: BP 117/62
[2017-03-07] MEDS: CITALOPRAM HYDROBROMIDE 20 MG TABLET PO SCH (08:16)
[2017-03-07] MEDS: CETIRIZINE 10 MG TABLET PO SCH (08:16)
[2017-03-07] MEDS ORDERED: FUROSEMIDE 20 MG TABLET PO SCH (10:00)
[2017-03-07] MEDS: PRENATAL VITAMIN W-O CA NO5/FE FUMARATE/FA CAPSULE PO SCH (10:14)
[2017-03-07] MEDS: SOTALOL HCL 80 MG TABLET PO SCH (10:14)
[2017-03-07] MEDS: SENNOSIDES/DOCUSATE 8.6-50 MG 1 EACH TABLET PO SCH (10:14)
[2017-03-07] MEDS: METFORMIN HCL 500 MG TABLET PO SCH (10:15)
[2017-03-07] MEDS: ENOXAPARIN SODIUM INJ 120 MG/0.8 ML DISP.SYRIN SUBCUT SCH (10:21)
== END 2017-03-07 12:45 | DRG 470 ==
LOC: INOR 05:26 → 4S 10:25
PROVIDERS: ADMIT Orthopaedic Surgery; ATTEND Orthopaedic Surgery
PROC: 0SRB02A Replacement of Left Hip Joint with Metal on Polyethylene Synthetic Substitute, Uncemented, Open Approach (ICD-10-PCS; principal; 2017-03-04 07:30)
DX: M16.12 Unilateral primary osteoarthritis, left hip (principal); E66.2 Morbid (severe) obesity with alveolar hypoventilation; Z68.41 Body mass index [BMI] 40.0-44.9, adult; E11.9 Type 2 diabetes mellitus without complications; D64.9 Anemia, unspecified; F32.9 Major depressive disorder, single episode, unspecified; F41.9 Anxiety disorder, unspecified; I11.0 Hypertensive heart disease with heart failure; G40.909 Epilepsy, unspecified, not intractable, without status epilepticus; E78.5 Hyperlipidemia, unspecified; I50.9 Heart failure, unspecified; I25.10 Atherosclerotic heart disease of native coronary artery without angina pectoris; J45.909 Unspecified asthma, uncomplicated; K58.9 Irritable bowel syndrome, unspecified; I48.0 Paroxysmal atrial fibrillation; M19.90 Unspecified osteoarthritis, unspecified site; I25.2 Old myocardial infarction; Z86.718 Personal history of other venous thrombosis and embolism; Z79.899 Other long term (current) drug therapy; Z86.73 Personal history of transient ischemic attack (TIA), and cerebral infarction without residual deficits; Z96.89 Presence of other specified functional implants; Z85.038 Personal history of other malignant neoplasm of large intestine; Z90.49 Acquired absence of other specified parts of digestive tract; Z90.710 Acquired absence of both cervix and uterus; Z88.8 Allergy status to other drugs, medicaments and biological substances; Z98.49 Cataract extraction status, unspecified eye; Z80.9 Family history of malignant neoplasm, unspecified
CPT/HCPCS: 01214; 36415; 71020; 72170; 78582; 80048; 81001; 82550; 82553; 82962; 83036; 84484; 85027; 85610; 86850; 86900; 86901; 88304; 88311; 93005; 93010; 94799; A9540; A9567; C1713; C1780; C9290; G8978-GP; G8979-GP; G8987-GO; G8988-GO; J0690; J0696; J1100; J1650; J1741; J1815; J1940; J2250; J2270; J2370; J2405; J2704; J3010; J3370; J3490; J7050; J7060; Q9969

== ENCOUNTER 2018-05-24 16:25 | Emergency (ER) | payer MEDICARE, OTHER ==
--- NOTE | 2018-05-24 16:41 | ER Document Report ---
ED General - General Chief Complaint: Possible Overdose Stated Complaint: POSSIBLE OVERDOSE Time Seen by Provider: 05/24/18 16:40 Mode of Arrival: Ambulatory Information source: Patient Notes: Patient arrived to the ED with for possible accidental overdose on celexa. Patient's is at bedside. He states that they do not have air conditioning in the home and that their house is very hot. He says that his was feeling very weak and having difficulty standing up. She told him that she might have taken extra Celexa today. She is not sure. Patient does not know when she took her medication or how much of her medication she did take. Patient denies any suicidal or homicidal ideations. Patient just complains of generalized weakness. She denies any numbness or tingling. She denies any speech changes, vision changes chest pain, shortness of breath, abdominal pain. In the emergency department, patient is awake, alert, oriented 3. She is slow to answer questions but is answering them appropriately. Her thinks that her symptoms are related to heat. TRAVEL OUTSIDE OF THE [place] IN LAST 30 DAYS: No - HPI Onset: Just prior to arrival Onset/Duration: Gradual Quality of pain: No pain Severity: None Pain Level: Denies Associated symptoms: Weakness Exacerbated by: Denies Relieved by: Denies Similar symptoms previously: No Recently seen / treated by doctor: No - Related Data Allergies/Adverse Reactions: atropine Allergy (Severe, Verified 05/24/18 16:29) STOPS RESPIRATORY DRIVE Past Medical History - General Information source: Patient, Relative - Social History Smoking Status: Never Smoker Family History: Reviewed & Not Pertinent, Malignancy - Past Medical History Cardiac Medical History: Reports: Hx Atrial Fibrillation, Hx Coronary Artery Disease, Hx Hypercholesterolemia, Hx Hypertension - on meds Denies: Hx Congestive Heart Failure, Hx Heart Attack, Hx Peripheral Vascular Disease, Hx Pulmonary Embolism, Hx Heart Murmur Pulmonary Medical History: Reports: Hx Asthma - hx of no current inhalers, Hx Sleep Apnea - uses cpap Denies: Hx Bronchitis, Hx COPD, Hx Pneumonia, Hx Respiratory Failure, Hx Tuberculosis Neurological Medical History: Reports: Hx Seizures - x 1 2 years ago no meds. Denies: Hx Cerebrovascular Accident Endocrine Medical History: Denies: Hx Graves' Disease, Hx Hyperthyroidism, Hx Hypothyroidism Renal/ Medical History: Denies: Hx End Stage Renal Disease, Hx Kidney Stones, Hx Peritoneal Dialysis Malignancy Medical History: Denies: Hx Leukemia, Hx Lung Cancer GI Medical History: Denies: Hx Crohn's Disease, Hx Gastroesophageal Reflux Disease, Hx Hiatal Hernia, Hx Irritable Bowel, Hx Liver Failure, Hx Pancreatitis , Hx Ulcer Musculoskeltal Medical History: Reports Hx Arthritis - hips, Denies Hx Fibromyalgia, Denies Hx Multiple Sclerosis, Denies Hx Muscular Dystrophy Psychiatric Medical History: Denies: Hx Bipolar Disorder, Hx Dementia, Hx Depression, Hx Post Traumatic Stress Disorder, Hx Schizophrenia Traumatic Medical History: Denies: Hx Fractures Infectious Medical History: Denies: Hx HIV Past Surgical History: Reports: Hx Appendectomy, Hx Cholecystectomy, Hx Hysterectomy, Hx Pacemaker - pacemaker dependent, Hx Tonsillectomy. Denies: Hx Bowel Surgery, Hx Section, Hx Colostomy, Hx Coronary Artery Bypass Graft, Hx Gastric Bypass Surgery, Hx Herniorrhaphy, Hx Mastectomy, Hx Tubal Ligation - Immunizations Hx Diphtheria, Pertussis, Tetanus Vaccination: Yes - < 5YRS AGO Hx Pneumococcal Vaccination: 09/25/15 Review of Systems - Review of Systems Constitutional: Weakness EENT: No symptoms reported Cardiovascular: No symptoms reported Respiratory: No symptoms reported Gastrointestinal: No symptoms reported Genitourinary: No symptoms reported Female Genitourinary: No symptoms reported Musculoskeletal: No symptoms reported Skin: No symptoms reported Hematologic/Lymphatic: No symptoms reported Neurological/Psychological: No symptoms reported -: Yes All other systems reviewed and negative Physical Exam - Vital signs Vitals: Pulse Ox 96 05/24/18 16:30 Interpretation: Normal - Notes Notes: PHYSICAL EXAMINATION: GENERAL: Well-appearing, well-nourished and in no acute distress. HEAD: Atraumatic, normocephalic. EYES: Pupils equal round and reactive to light, extraocular movements intact, conjunctiva are normal. ENT: Nares patent, oropharynx clear without exudates. Moist mucous membranes. NECK: Normal range of motion, supple without lymphadenopathy LUNGS: Breath sounds clear to auscultation bilaterally and equal. No wheezes rales or rhonchi. HEART: Regular rate and rhythm without murmurs ABDOMEN: Soft, nontender, nondistended abdomen. No guarding, no rebound. No masses appreciated. Female : deferred Musculoskeletal: Normal range of motion, no pitting or edema. No cyanosis. NEUROLOGICAL: Cranial nerves grossly intact. Normal speech, normal gait. Normal sensory, motor exams PSYCH: Normal mood, normal affect. SKIN: Warm, Dry, normal turgor, no rashes or lesions noted. Course - Re-evaluation Re-evalutation: 05/24/18 21:22 Poison control contacted. Recommend magnesium level and monitoring. On re- evaluation, patient feels better. Weakness resolved. says that she's improved. We will ambulate the patient and obtain orthostatic vitals. 05/24/18 21:53 Orthostatic hypotension appreciated. Patient says she has a hx of orthostatic hypotension. This is not new. Patient ambulating normally. Denies weakness. I will discharge the patient home. Patient instructed to take her medication as directed, to follow-up with her primary care physician this week, and to return to the emergency department for worsening symptoms. Patient and her are agreeable with the plan of care. 05/24/18 21:55 - Vital Signs Vital signs: Temp Pulse Resp BP Pulse Ox 99.1 F 78 18 138/85 H 95 05/24/18 21:41 05/24/18 21:30 05/24/18 21:41 05/24/18 21:41 05/24/18 21:41 - Laboratory Result Diagrams: 05/24/18 16:48 05/24/18 16:48 Laboratory results interpreted by me: 05/24/18 05/24/18 16:48 19:10 Sodium 146.4 H Potassium 3.3 L Est GFR (Non-Af Amer) 58 L AST 44 H Ur Leukocyte Esterase TRACE H Salicylates < 1.0 L Acetaminophen < 10 L - EKG Interpretation by Me Additional EKG results interpreted by me: 05/24/18 21:06 EKG: Ventricular rate 85, MT interval 204, QRS duration 176, QTc 557, ventricularly paced rhythm. Similar to previous EKG done on 03/05/17 05/24/18 21:55 Discharge - Discharge Clinical Impression: Generalized weakness Condition: Good Disposition: HOME, SELF-CARE Instructions: Weakness (FORM[facility]LY [facility], 1928–1983) Referrals: HEAVEN ABREU MD [Primary Care Provider] - Follow up as needed
[2018-05-24] MEDS ORDERED: NORMAL SALINE 1000 ML 1,000 ML IV ONE (16:50)
[2018-05-24 16:57] LABS: ABSOLUTE EOSINOPHILS # (AUTO) 0.1 10^3/uL (0.0-0.6); ABSOLUTE LYMPHOCYTES (AUTO) 2.4 10^3/uL (0.5-4.7); ABSOLUTE MONOCYTES (AUTO) 0.5 10^3/uL (0.1-1.4); ABSOLUTE NEUT (AUTO) 4.3 10^3/uL (1.7-8.2); BASOPHILS % (AUTO) 0.3 % (0-2); EOSINOPHILS % (AUTO) 1.1 % (0-6); HEMATOCRIT 41.1 % (36.0-47.0); HEMOGLOBIN 13.4 g/dL (12.0-15.5); LYMPHOCYTES % (AUTO) 32.8 % (13-45); MEAN CORPUSCULAR HEMOGLOBIN 28.9 pg (27.0-33.4); MEAN CORPUSCULAR HGB CONC 32.7 g/dL (32.0-36.0); MEAN CORPUSCULAR VOLUME 88 fl (80-97); MONOCYTES % (AUTO) 6.7 % (3-13); PLATELET COUNT 244 10^3/uL (150-450); RED BLOOD COUNT 4.65 10^6/uL (3.72-5.28); SEGMENTED NEUTROPHILS % (AUTO) 59.1 % (42-78); TOTAL CELLS COUNTED % (AUTO) 100 %; WHITE BLOOD COUNT 7.2 10^3/uL (4.0-10.5)
[2018-05-24 17:08] LABS: ALANINE AMINOTRANSFERASE 46 U/L (9-52); ALBUMIN 4.2 g/dL (3.5-5.0); ALKALINE PHOSPHATASE 50 U/L (38-126); ANION GAP 16 (5-19); ASPARTATE AMINO TRANSFERASE 44 U/L (14-36); BILIRUBIN,DIRECT 0.4 mg/dL (0.0-0.4); BILIRUBIN,TOTAL 0.4 mg/dL (0.2-1.3); BLOOD UREA NITROGEN 10 mg/dL (7-20); CALCIUM 9.5 mg/dL (8.4-10.2); CARBON DIOXIDE 23 mmol/L (22-30); CHLORIDE 107 mmol/L (98-107); CREATINE KINASE 98 U/L (30-135); GLUCOSE 99 mg/dL (75-110); POTASSIUM 3.3 mmol/L (3.6-5.0); SODIUM 146.4 mmol/L (137-145); TOTAL PROTEIN 7.1 g/dL (6.3-8.2)
[2018-05-24 17:17] LABS: ACETAMINOPHEN < 10 ug/mL (10-30); ALCOHOL < 10 mg/dL (NONE DETECTED); SALICYLATE < 1.0 mg/dL (2.0-20.0)
--- NOTE | 2018-05-24 17:48 | RADIOLOGY REPORT (SQ) ---
EXAM DESCRIPTION: CT HEAD WITHOUT COMPLETED DATE/TIME: 05/24/2018 5:23 pm REASON FOR STUDY: weakness COMPARISON: None. TECHNIQUE: Axial images acquired through the brain without intravenous contrast. Images reviewed wi th bone, brain and subdural windows. Images stored on PACS. All CT scanners at this facility use dose modulation, iterative reconstruction, and/or weight based d osing when appropriate to reduce radiation dose to as low as reasonably achievable (ALARA). [facility]: Dose Right [facility]: CareDose [facility]: Dose Right [facility]: Teradose 4D [facility]: Smart Shopperception RADIATION DOSE: CT Rad equipment meets quality standard of care and radiation dose reduction techniq ues were employed. CTDIvol: 53.2 mGy. DLP: 911 mGy-cm. mGy. LIMITATIONS: None. FINDINGS: VENTRICLES: Normal size and contour. CEREBRUM: No mass effect. No hemorrhage. No midline shift. Normal funez/white matter differentiatio n. No evidence for acute territorial infarction. CEREBELLUM: No mass effect. No hemorrhage. No alteration of density. No evidence for acute infarct ion. EXTRAAXIAL SPACES: No fluid collections. ORBITS AND GLOBE: Symmetrical contour of the globes. CALVARIUM: No depressed skull fracture. PARANASAL SINUSES: No air-fluid level. SOFT TISSUES: No hematoma. IMPRESSION: No acute intracranial hemorrhage or acute territorial infarct. EVIDENCE OF ACUTE STROKE: NO. COMMENT: Quality ID # [id number]: Final reports with documentation of one or more dose reduction techniques (e.g., Automated exposure control, adjustment of the mA and/or kV according to patient size, use of iterative reconstruction technique) TECHNICAL DOCUMENTATION: JOB ID: [id number] 2010 [employer]- All Rights Reserved Reading location - IP/workstation name: [email or web address]
--- NOTE | 2018-05-24 17:54 | RADIOLOGY REPORT (SQ) ---
EXAM DESCRIPTION: CHEST SINGLE VIEW COMPLETED DATE/TIME: 05/24/2018 5:33 pm REASON FOR STUDY: weakness COMPARISON: Chest x-ray 03/05/2017. EXAM PARAMETERS: NUMBER OF VIEWS: One view. TECHNIQUE: Single frontal radiographic view of the chest acquired. RADIATION DOSE: NA LIMITATIONS: None. FINDINGS: LUNGS AND PLEURA: No consolidation, pneumothorax or pleural effusion. MEDIASTINUM AND HILAR STRUCTURES: No masses. Contour normal. HEART AND VASCULAR STRUCTURES: The heart remains mildly enlarged. No overt vascular congestion. BONES: No acute findings. HARDWARE: There is a left-sided pacemaker. IMPRESSION: Stable cardiomegaly. No consolidation or pleural effusion. TECHNICAL DOCUMENTATION: JOB ID: [id number] 2010 [employer]- All Rights Reserved Reading location - IP/workstation name: [email or web address]
[2018-05-24 19:29] LABS: APPEARANCE,URINE CLEAR; BILIRUBIN,URINE NEGATIVE (NEGATIVE); COLOR,URINE YELLOW; GLUCOSE, URINE NEGATIVE (NEGATIVE); KETONES,URINE NEGATIVE (NEGATIVE); LEUKOCYTE ESTERASE,URINE TRACE (NEGATIVE); NITRITE,URINE NEGATIVE (NEGATIVE); PROTEIN,URINE NEGATIVE (NEGATIVE); URINE SPECIFIC GRAVITY 1.009; UROBILINOGEN,URINE NEGATIVE mg/dL (<2.0)
[2018-05-24 19:50] LABS: URINE AMPHETAMINES SCREEN NEGATIVE; URINE BARBITURATES SCREEN NEGATIVE; URINE BENZODIAZEPINES SCREEN NEGATIVE; URINE COCAINE SCREEN NEGATIVE; URINE MARIJUANA (THC) SCREEN NEGATIVE; URINE METHADONE SCREEN NEGATIVE
[2018-05-24 19:58] LABS: URINE PHENCYCLIDINE SCREEN NEGATIVE
[2018-05-24 22:05] VITALS: BP 134/78
--- NOTE | 2018-05-24 22:59 | EKG REPORT ---
SEVERITY:- ABNORMAL ECG - ATRIAL-SENSED VENTRICULAR-PACED RHYTHM : Confirmed by: Blanca Sherman MD 24-May-2018 22:59:00
== END 2018-05-24 22:19 | disposition home or self-care (01) ==
LOC: ER 16:25
DX: I95.1 Orthostatic hypotension (principal); R53.1 Weakness; I25.10 Atherosclerotic heart disease of native coronary artery without angina pectoris; I10 Essential (primary) hypertension; J45.909 Unspecified asthma, uncomplicated
CPT/HCPCS: 93005; 99285; 96360; 36415; 87040; 80307 ×4; 82550; 83735; 85025; 80053; 81001; 84484; 71045; 70450; 93010; J7030

== ENCOUNTER 2018-12-10 19:36 | Inpatient (IN) | payer MEDICARE ==
[2018-12-10] MEDS ORDERED: NORMAL SALINE 1000 ML 1,000 ML IV ONE (20:57)
[2018-12-10 21:18] LABS: VENOUS BLOOD BASE EXCESS -0.4 mmol/L; VENOUS BLOOD HCO3 26.4 mmol/L (20-32); VENOUS BLOOD PCO2 51.5 mmHg (35-63); VENOUS BLOOD PH 7.33 (7.30-7.42)
[2018-12-10 21:31] LABS: PROTHROMBIN TIME 16.8 SEC (11.4-15.4)
[2018-12-10 21:32] LABS: ABSOLUTE LYMPHOCYTES (AUTO) 1.2 10^3/uL (0.5-4.7); ABSOLUTE MONOCYTES (AUTO) 0.7 10^3/uL (0.1-1.4); ABSOLUTE NEUT (AUTO) 4.2 10^3/uL (1.7-8.2); BASOPHILS % (AUTO) 0.4 % (0-2); HEMATOCRIT 39.8 % (36.0-47.0); HEMOGLOBIN 13.4 g/dL (12.0-15.5); LYMPHOCYTES % (AUTO) 19.8 % (13-45); MEAN CORPUSCULAR HEMOGLOBIN 29.4 pg (27.0-33.4); MEAN CORPUSCULAR HGB CONC 33.8 g/dL (32.0-36.0); MEAN CORPUSCULAR VOLUME 87 fl (80-97); PLATELET COUNT 201 10^3/uL (150-450); RED BLOOD COUNT 4.57 10^6/uL (3.72-5.28); RED CELL DISTRIBUTION WIDTH 14.5 % (11.5-14.0); SEGMENTED NEUTROPHILS % (AUTO) 68.8 % (42-78); TOTAL CELLS COUNTED % (AUTO) 100 %; WHITE BLOOD COUNT 6.2 10^3/uL (4.0-10.5)
--- NOTE | 2018-12-10 21:35 | RADIOLOGY REPORT (SQ) ---
EXAM DESCRIPTION: XR CHEST 1 VIEW COMPLETED DATE/TME: 12/10/2018 20:57 CLINICAL HISTORY: 63 years, Female, LOC, hypotension Findings: Heart is mildly enlarged. Left chest pacemaker. No consolidation or pleural effusion. No pulmonary edema or pneumothorax. IMPRESSION: No acute disease.
[2018-12-10 21:41] LABS: ALANINE AMINOTRANSFERASE 38 U/L (9-52); ALBUMIN 4.4 g/dL (3.5-5.0); ALKALINE PHOSPHATASE 65 U/L (38-126); ANION GAP 10 (5-19); ASPARTATE AMINO TRANSFERASE 42 U/L (14-36); BILIRUBIN,DIRECT 0.3 mg/dL (0.0-0.4); BILIRUBIN,TOTAL 0.4 mg/dL (0.2-1.3); BLOOD UREA NITROGEN 15 mg/dL (7-20); CARBON DIOXIDE 28 mmol/L (22-30); CHLORIDE 100 mmol/L (98-107); GLUCOSE 121 mg/dL (75-110); POTASSIUM 4.4 mmol/L (3.6-5.0); SODIUM 137.8 mmol/L (137-145); TOTAL PROTEIN 7.4 g/dL (6.3-8.2)
--- NOTE | 2018-12-10 21:49 | RADIOLOGY REPORT (SQ) ---
EXAM DESCRIPTION: XR ANKLE 3 OR MORE VIEWS COMPLETED DATE/TME: 12/10/2018 21:22 CLINICAL HISTORY: 63 years, Female, tripped and fell, L lateral malleolus TTP Findings: Bony alignment is anatomic. No fracture or dislocation. Moderate diffuse soft tissue swelling. Mild plantar and retrocalcaneal spurring. Bones are osteopenic. IMPRESSION: No fracture.
[2018-12-10 22:08] LABS: CREATINE KINASE MB < 0.22 ng/mL (<4.55); TROPONIN I < 0.012 ng/mL
--- NOTE | 2018-12-10 22:21 | ER Document Report ---
ED General - General Mode of Arrival: Ambulatory Information source: Patient TRAVEL OUTSIDE OF THE [place] IN LAST 30 DAYS: No <LEONCIO NGUYỄN - Last Filed: 12/10/18 22:23> <ANA JENNINGS - Last Filed: 12/11/18 06:47> - General Chief Complaint: Syncope Stated Complaint: FEVER,PASSING OUT,HEADACHE Time Seen by Provider: 12/10/18 20:56 Notes: Patient is a 63 year old female with afib, pacemaker (3x,1st placed at the age of 42), CHF (38% ejection fraction) presents to the emergency department complaining of general malaise, urinary incontinence and syncopal episodes. Patient states she has been feeling unwell for 1 week. She states yesterday she had multiple episodes of urinary incontinence due to being to weak to make it to the bathroom. She states whenever she would stand up, she would "pass out" and wake up before she hit the floor. She also complains of a fever (101.6 today), cough onset Saturday, diarrhea onset today as well as chest pain onset today. Patient denies any vomiting. Daughter states the patient has been around multiple sick contacts and further states those contacts have been diagnosed with the flu. She also complains of left ankle pain. She states she fell out of bed this morning and twisted her ankle. She states she has been unable to put any pressure on her ankle. (LEONCIO NGUYỄN) - Related Data Allergies/Adverse Reactions: atropine Allergy (Severe, Verified 05/24/18 16:29) STOPS RESPIRATORY DRIVE Past Medical History - General Information source: Patient - Social History Smoking Status: Never Smoker Cigarette use (# per day): No Chew tobacco use (# tins/day): No Smoking Education Provided: No Frequency of alcohol use: None Family History: Reviewed & Not Pertinent, Malignancy - Past Medical History Cardiac Medical History: Reports: Hx Atrial Fibrillation, Hx Coronary Artery Disease, Hx Hypercholesterolemia, Hx Hypertension - on meds Pulmonary Medical History: Reports: Hx Asthma - hx of no current inhalers, Hx Sleep Apnea - uses cpap Neurological Medical History: Reports: Hx Seizures - x 1 2 years ago no meds Musculoskeletal Medical History: Reports Hx Arthritis - hips Past Surgical History: Reports: Hx Abdominal Surgery - partial colon resection, Hx Appendectomy, Hx Breast Surgery - left lumpectomy, Hx Cardiac Surgery - pacemaker x3, Hx Cholecystectomy, Hx Hysterectomy, Hx Orthopedic Surgery - right hip, Hx Pacemaker - pacemaker dependent, Hx Tonsillectomy - Immunizations Hx Diphtheria, Pertussis, Tetanus Vaccination: Yes - < 5YRS AGO Hx Pneumococcal Vaccination: 09/25/15 <LEONCIO NGUYỄN - Last Filed: 12/10/18 22:23> Review of Systems - Review of Systems Constitutional: See HPI, Malaise EENT: No symptoms reported Cardiovascular: See HPI, Chest pain Respiratory: See HPI, Cough Gastrointestinal: See HPI, Diarrhea Genitourinary: See HPI, Incontinence Female Genitourinary: No symptoms reported Musculoskeletal: See HPI Skin: No symptoms reported Hematologic/Lymphatic: No symptoms reported Neurological/Psychological: No symptoms reported <LEONCIO NGUYỄN - Last Filed: 12/10/18 22:23> Physical Exam <LEONCIO NGUYỄN - Last Filed: 12/10/18 22:23> <ANA JENNINGS - Last Filed: 12/11/18 06:47> - Vital signs Vitals: Temp Pulse Resp BP Pulse Ox 98.2 F 82 18 86/49 L 98 12/10/18 20:00 12/10/18 20:00 12/10/18 20:00 12/10/18 20:00 12/10/18 20:00 - Notes Notes: GENERAL: Alert, interacts well. No acute distress. HEAD: Normocephalic, atraumatic. EYES: Pupils equal, round, and reactive to light. Extraocular movements intact. ENT: Oral mucosa moist, tongue midline. NECK: Full range of motion. Supple. Trachea midline. LUNGS:Crackles in the LLL. No respiratory distress. HEART: Regular rate and rhythm. No murmurs, gallops, or rubs. ABDOMEN: Soft, non-tender. Non-distended. Bowel sounds present in all 4 quadrants. EXTREMITIES: Moves all 4 extremities spontaneously. Tender to palpation to the left distal 3rd malleolus. NEUROLOGICAL: Alert and oriented x3. Normal speech. PSYCH: Normal affect, normal mood. SKIN: Warm, dry, normal turgor. No rashes or lesions noted. (LEONCIO NGUYỄN) Dizzy on sitting up Correction to scribe exam, patient is tender to palpation to the distal third of the left lateral malleolus. (ANA JENNINGS) Course - Laboratory Result Diagrams: 12/10/18 21:02 12/10/18 21:02 <LEONCIO NGUYỄN - Last Filed: 12/10/18 22:23> - Laboratory Result Diagrams: 12/11/18 03:02 12/11/18 03:02 <ANA JENNINGS - Last Filed: 12/11/18 06:47> - Re-evaluation Re-evalutation: 12/11/18 01:47 CBC unremarkable, INR is actually low at 1.3, venous blood gas unremarkable, CMP shows elevated creatinine 1.34 otherwise unremarkable, lactic acid normal, cardiac enzymes negative, proBNP normal at 457, urinalysis unremarkable, ankle x-ray does not show any fracture, consistent with sprain, will place in Devin wrap. Chest x-ray shows no acute process. Patient was gently rehydrated using 1 L of normal saline, still has persistent hypotension and orthostasis. Patient will be was discussed with Dr. Rubio, agrees to admit the patient to his service for persistent hypotension and recurrent syncope. (ANA JENNINGS) - Vital Signs Vital signs: Temp Pulse Resp BP Pulse Ox 98.8 F 82 21 H 116/63 97 12/11/18 06:21 12/10/18 20:00 12/11/18 06:21 12/11/18 06:21 12/11/18 06:21 - Laboratory Laboratory results interpreted by me: 12/10/18 12/10/18 12/10/18 21:02 21:02 21:02 RDW 14.5 H PT 16.8 H Creatinine 1.34 H Est GFR ( Amer) 48 L Est GFR (Non-Af Amer) 40 L Glucose 121 H POC Glucose AST 42 H Urine Protein 12/10/18 12/10/18 21:15 23:22 RDW PT Creatinine Est GFR ( Amer) Est GFR (Non-Af Amer) Glucose POC Glucose 113 H AST Urine Protein 30 H - EKG Interpretation by Me Additional EKG results interpreted by me: 12/11/18 01:47 EKG shows atrial sensed ventricularly paced rhythm at a rate of 76, no ST segment elevation, unchanged from prior EKG on 05/24/2018 per my interpretation. (ANA JENNINGS) Procedures - Immobilization left ankle Pre-Proc Neuro Vasc Exam: Normal Immobilizer type: Devin wrap Performed by: PCT Post-Proc Neuro Vasc Exam: Normal, Unchanged from pre-exam Alignment checked and good: Yes <ANA JENNINGS - Last Filed: 12/11/18 06:47> Discharge <LEONCIO NGUYỄN - Last Filed: 12/10/18 22:23> - Discharge Admitting Provider: [facility] Unit Admitted: [facility] <ANA JENNINGS - Last Filed: 12/11/18 06:47> - Discharge Clinical Impression: Elevated serum creatinine Syncope Qualifiers: Syncope type: unspecified Qualified Code(s): R55 - Syncope and collapse Hypotension Qualifiers: Hypotension type: orthostatic hypotension Qualified Code(s): I95.1 - Orthostatic hypotension Condition: Fair Disposition: ADMITTED INPATIENT Scribe Attestation: 12/11/18 06:47 I personally performed the services described in the documentation, reviewed and edited the documentation which was dictated to the scribe in my presence, and it accurately records my words and actions. (ANA JENNINGS) Scribe Documentation - Scribe Written by Scribe:: Katelyn Pierce, 12/10/2017 22:28 acting as scribe for :: Charlie <LEONCIO NGUYỄN - Last Filed: 12/10/18 22:23>
[2018-12-10 23:47] LABS: APPEARANCE,URINE SLIGHTLY-CLOUDY; BILIRUBIN,URINE NEGATIVE (NEGATIVE); COLOR,URINE YELLOW; GLUCOSE, URINE NEGATIVE (NEGATIVE); KETONES,URINE NEGATIVE (NEGATIVE); LEUKOCYTE ESTERASE,URINE NEGATIVE (NEGATIVE); NITRITE,URINE NEGATIVE (NEGATIVE); PROTEIN,URINE 30 mg/dL (NEGATIVE); URINE SPECIFIC GRAVITY 1.017; UROBILINOGEN,URINE NEGATIVE mg/dL (<2.0)
[2018-12-11] MEDS ORDERED: LORAZEPAM INJ 2 MG/1 ML VIAL IV ONE (01:16)
[2018-12-11] MEDS ORDERED: IPRATROPIUM/ALBUTEROL 0.5-2.5 MG/3 ML AMPUL NEB PRN (01:51)
[2018-12-11] MEDS ORDERED: MAG HYDROX/AL HYDROX/SIMETH SUSP 30 ML UDCUP PO PRN (01:51)
[2018-12-11 02:30] LABS: URINE AMPHETAMINES SCREEN NEGATIVE; URINE BARBITURATES SCREEN NEGATIVE; URINE BENZODIAZEPINES SCREEN NEGATIVE; URINE COCAINE SCREEN NEGATIVE; URINE MARIJUANA (THC) SCREEN NEGATIVE; URINE METHADONE SCREEN NEGATIVE; URINE PHENCYCLIDINE SCREEN NEGATIVE
[2018-12-11 03:11] LABS: ABSOLUTE LYMPHOCYTES (AUTO) 1.8 10^3/uL (0.5-4.7); ABSOLUTE MONOCYTES (AUTO) 0.7 10^3/uL (0.1-1.4); ABSOLUTE NEUT (AUTO) 3.1 10^3/uL (1.7-8.2); BASOPHILS % (AUTO) 0.7 % (0-2); EOSINOPHILS % (AUTO) 0.2 % (0-6); HEMATOCRIT 34.7 % (36.0-47.0); HEMOGLOBIN 11.9 g/dL (12.0-15.5); LYMPHOCYTES % (AUTO) 31.8 % (13-45); MEAN CORPUSCULAR HEMOGLOBIN 29.4 pg (27.0-33.4); MEAN CORPUSCULAR HGB CONC 34.2 g/dL (32.0-36.0); MEAN CORPUSCULAR VOLUME 86 fl (80-97); MONOCYTES % (AUTO) 12.9 % (3-13); PLATELET COUNT 159 10^3/uL (150-450); RED BLOOD COUNT 4.04 10^6/uL (3.72-5.28); RED CELL DISTRIBUTION WIDTH 14.1 % (11.5-14.0); SEGMENTED NEUTROPHILS % (AUTO) 54.4 % (42-78); TOTAL CELLS COUNTED % (AUTO) 100 %; WHITE BLOOD COUNT 5.7 10^3/uL (4.0-10.5)
[2018-12-11 03:27] LABS: ANION GAP 6 (5-19); BLOOD UREA NITROGEN 16 mg/dL (7-20); CALCIUM 8.2 mg/dL (8.4-10.2); CARBON DIOXIDE 26 mmol/L (22-30); CHLORIDE 105 mmol/L (98-107); GLUCOSE 107 mg/dL (75-110); SODIUM 137.3 mmol/L (137-145)
[2018-12-11 03:48] LABS: CREATINE KINASE MB < 0.22 ng/mL (<4.55); TROPONIN I < 0.012 ng/mL
--- NOTE | 2018-12-11 06:06 | PDOC H&P ---
History of Present Illness Admission Date/PCP: 12/11/18 01:55 Patient complains of: Generalized weakness and presyncope History of Present Illness: KIM SUMMERS I is a 63 year old female with a past medical history of sinus node dysfunction and subsequent permanent pacemaker placement, diabetes, DJD, obesity, depression, colon cancer with hemicolectomy and congestive heart failure with an ejection fraction of 38%. She presents with 1 week of generalized malaise, nausea, presyncopal episodes while ambulating and incontinence. She describes the feeling of passing out but waking up before she hits the floor. Denies shortness of breath, palpitations, loss of consciousness, headache, blurred vision, dysarthria or focal weakness. Today she developed a fever prompting evaluation emergency room where she has a completely unremarkable workup with exception of orthostatic hypotension. She is referred to the hospitalist for admission. Patient admits recent reduction in sotalol secondary to similar symptoms in the past. Past Medical History Cardiac Medical History: Reports: Atrial Fibrillation, Coronary Artery Disease, Hyperlipidema, Hypertension - on meds Denies: Congestive Heart Failure, Myocardial Infarction, Peripheral Vascular Disease, Pulmonary Embolism, Heart Murmur Pulmonary Medical History: Reports: Asthma - hx of no current inhalers, Sleep Apnea - uses cpap Denies: Bronchitis, Chronic Obstructive Pulmonary Disease (COPD), Pneumonia, Respiratory Failure, Tuberculosis Neurological Medical History: Reports: Seizures - x 1 2 years ago no meds Endocrine Medical History: Denies: Hyperthyroidism, Hypothyroidism Renal/ Medical History: Denies: End Stage Renal Disease Malignancy Medical History: Denies: Leukemia, Lung Cancer GI Medical History: Denies: Crohn's Disease, Gastroesophageal Reflux Disease, Hiatal Hernia Musculoskeltal Medical History: Reports: Arthritis - hips Denies: Fibromyalgia Psychiatric Medical History: Denies: Bipolar Disorder, Dementia, Depression, Post Traumatic Stress Disorder Hematology: Reports: Anemia - Blood Transfusion after hysterectomy Denies: Hemophilia, Sickle Cell Disease Infectious Medical History: Denies: HIV Past Surgical History Past Surgical History: Reports: Appendectomy, Cholecystectomy, Hysterectomy, Orthopedic Surgery - right hip, Pacemaker - pacemaker dependent, Tonsillectomy Denies: Amputation, Section, Colostomy, Coronary Artery Bypass Graft, Gastric Bypass Surgery, Herniorrhaphy, Mastectomy, Tubal Ligation Social History Information Source: Patient, [facility] Records Lives with: Family Smoking Status: Never Smoker Frequency of Alcohol Use: None Hx Recreational Drug Use: No Hx Prescription Drug Abuse: No - Advance Directive Resuscitation Status: Full Code Family History Family History: Malignancy Parental Family History Reviewed: Yes Children Family History Reviewed: Yes Sibling(s) Family History Reviewed.: Yes Medication/Allergy Home Medications: Albuterol Sulfate [Ventolin Hfa] 2 puff IH Q4HP PRN 03/04/17 Amitriptyline HCl [Elavil 50 mg Tablet] 50 mg PO QHS 03/04/17 Citalopram Hydrobromide [Celexa 40 mg Tablet] 40 mg PO DAILY 03/04/17 Fluticasone Propionate [Flonase Nasal [place] 50 Mcg/[place] 16 gm] 1 spray NASL QPM 03/04/17 Metformin HCl [Glucophage] 500 mg PO BIDBS 03/04/17 Multivitamin [Tab-A-Will] 1 tab PO DAILY 03/04/17 Simvastatin [Zocor 20 mg Tablet] 20 mg PO DAILY 03/04/17 Sotalol HCl [Sotalol] 80 mg PO Q12 03/04/17 Tramadol HCl [Ultram 50 mg Tablet] 50 mg PO Q6HP PRN 03/04/17 Amitriptyline HCl [Elavil 50 mg Tablet] 50 mg PO QPM #0 tablet 03/07/17 Citalopram Hydrobromide [Celexa 20 mg Tablet] 40 mg PO QAM #0 tablet 03/07/17 Enoxaparin Sodium [Lovenox Inj 120 mg/0.8 ml Disp.syrin] 110 mg SUBCUT Q12 #0 disp.syrin 03/07/17 Oxycodone HCl [Oxy-Ir 5 mg Tablet] 5 mg PO Q6HP PRN #0 tablet 03/07/17 Sotalol HCl [Betapace 80 mg Tablet] 80 mg PO BID #0 tablet 03/07/17 Warfarin Sodium [Coumadin 5 mg Tablet] 5 mg PO QHS #0 tablet 03/07/17 Allergies/Adverse Reactions: atropine Allergy (Severe, Verified 05/24/18 16:29) STOPS RESPIRATORY DRIVE Review of Systems Constitutional: PRESENT: as per HPI, chills, fatigue, fever(s), weakness Eyes: ABSENT: visual disturbances Ears: ABSENT: hearing changes Cardiovascular: PRESENT: dyspnea on exertion, orthropnea. ABSENT: chest pain, edema, palpitations Respiratory: ABSENT: cough, hemoptysis Gastrointestinal: PRESENT: bloating, nausea. ABSENT: abdominal pain, constipation, diarrhea, hematemesis, hematochezia, vomiting Genitourinary: ABSENT: dysuria, hematuria Musculoskeletal: ABSENT: joint swelling Integumentary: ABSENT: rash, wounds Neurological: PRESENT: dizziness, weakness. ABSENT: abnormal gait, abnormal speech, confusion, focal weakness, syncope Psychiatric: ABSENT: anxiety, depression, homidical ideation, suicidal ideation Endocrine: ABSENT: cold intolerance, heat intolerance, polydipsia, polyuria Hematologic/Lymphatic: ABSENT: easy bleeding, easy bruising Physical Exam Vital Signs: Temp Pulse Resp BP Pulse Ox 98.2 F 82 18 113/55 L 96 12/10/18 20:00 12/10/18 20:00 12/11/18 05:21 12/11/18 05:21 12/11/18 05:21 Intake & Output 12/09/18 12/10/18 12/11/18 11:59 11:59 11:59 Intake Total 1000 Balance 1000 Weight 94.5 kg General appearance: PRESENT: no acute distress, well-developed, well-nourished Head exam: PRESENT: atraumatic, normocephalic Eye exam: PRESENT: conjunctiva pink, EOMI, PERRLA. ABSENT: scleral icterus Ear exam: PRESENT: normal external ear exam Mouth exam: PRESENT: moist, tongue midline Neck exam: ABSENT: carotid bruit, JVD, lymphadenopathy, thyromegaly Respiratory exam: PRESENT: clear to auscultation adalberto. ABSENT: rales, rhonchi, wheezes Cardiovascular exam: PRESENT: RRR. ABSENT: diastolic murmur, rubs, systolic murmur Pulses: PRESENT: normal dorsalis pedis pul Vascular exam: PRESENT: normal capillary refill GI/Abdominal exam: PRESENT: normal bowel sounds, soft. ABSENT: distended, guarding, mass, organolmegaly, rebound, tenderness Rectal exam: PRESENT: deferred Extremities exam: PRESENT: full ROM. ABSENT: calf tenderness, clubbing, pedal edema Neurological exam: PRESENT: alert, awake, oriented to person, oriented to place, oriented to time, oriented to situation, CN II-XII grossly intact. ABSENT: motor sensory deficit Psychiatric exam: PRESENT: appropriate affect, normal mood. ABSENT: homicidal ideation, suicidal ideation Skin exam: PRESENT: dry, intact, warm. ABSENT: cyanosis, rash Results Laboratory Results: 12/11/18 03:02 12/11/18 03:02 12/10/18 12/10/18 12/10/18 21:02 21:02 21:02 WBC 6.2 RBC 4.57 Hgb 13.4 Hct 39.8 MCV 87 MCH 29.4 MCHC 33.8 RDW 14.5 H Plt Count 201 Seg Neutrophils % 68.8 Lymphocytes % 19.8 Monocytes % 11.0 Eosinophils % 0.0 Basophils % 0.4 Absolute Neutrophils 4.2 Absolute Lymphocytes 1.2 Absolute Monocytes 0.7 Absolute Eosinophils 0.0 Absolute Basophils 0.0 VBG pH VBG pCO2 VBG HCO3 VBG Base Excess Sodium 137.8 Potassium 4.4 Chloride 100 Carbon Dioxide 28 Anion Gap 10 BUN 15 Creatinine 1.34 H Est GFR ( Amer) 48 L Est GFR (Non-Af Amer) 40 L Glucose 121 H Lactic Acid 1.9 Calcium 9.0 Total Bilirubin 0.4 AST 42 H ALT 38 Alkaline Phosphatase 65 Total Protein 7.4 Albumin 4.4 TSH Urine Color Urine Appearance Urine pH Ur Specific [place] Urine Protein Urine Glucose (UA) Urine Ketones Urine Blood Urine Nitrite Ur Leukocyte Esterase Urine WBC (Auto) Urine RBC (Auto) 12/10/18 12/10/18 12/11/18 21:02 23:22 03:02 WBC RBC Hgb Hct MCV MCH MCHC RDW Plt Count Seg Neutrophils % Lymphocytes % Monocytes % Eosinophils % Basophils % Absolute Neutrophils Absolute Lymphocytes Absolute Monocytes Absolute Eosinophils Absolute Basophils VBG pH 7.33 VBG pCO2 51.5 VBG HCO3 26.4 VBG Base Excess -0.4 Sodium Potassium Chloride Carbon Dioxide Anion Gap BUN Creatinine Est GFR ( Amer) Est GFR (Non-Af Amer) Glucose Lactic Acid Calcium Total Bilirubin AST ALT Alkaline Phosphatase Total Protein Albumin TSH 0.65 Urine Color YELLOW Urine Appearance SLIGHTLY-CLOUDY Urine pH 5.0 Ur Specific [place] 1.017 Urine Protein 30 H Urine Glucose (UA) NEGATIVE Urine Ketones NEGATIVE Urine Blood NEGATIVE Urine Nitrite NEGATIVE Ur Leukocyte Esterase NEGATIVE Urine WBC (Auto) 2 Urine RBC (Auto) 1 12/11/18 12/11/18 03:02 03:02 WBC 5.7 RBC 4.04 Hgb 11.9 L Hct 34.7 L MCV 86 MCH 29.4 MCHC 34.2 RDW 14.1 H Plt Count 159 Seg Neutrophils % 54.4 Lymphocytes % 31.8 Monocytes % 12.9 Eosinophils % 0.2 Basophils % 0.7 Absolute Neutrophils 3.1 Absolute Lymphocytes 1.8 Absolute Monocytes 0.7 Absolute Eosinophils 0.0 Absolute Basophils 0.0 VBG pH VBG pCO2 VBG HCO3 VBG Base Excess Sodium 137.3 Potassium 4.0 Chloride 105 Carbon Dioxide 26 Anion Gap 6 BUN 16 Creatinine 1.07 Est GFR ( Amer) > 60 Est GFR (Non-Af Amer) 52 L Glucose 107 Lactic Acid Calcium 8.2 L Total Bilirubin AST ALT Alkaline Phosphatase Total Protein Albumin TSH Urine Color Urine Appearance Urine pH Ur Specific [place] Urine Protein Urine Glucose (UA) Urine Ketones Urine Blood Urine Nitrite Ur Leukocyte Esterase Urine WBC (Auto) Urine RBC (Auto) 12/10/18 12/10/18 12/10/18 21:02 21:02 21:02 Creatine Kinase 32 CK-MB (CK-2) < 0.22 Troponin I < 0.012 NT-Pro-B Natriuret Pep 457 12/11/18 12/11/18 03:02 03:02 Creatine Kinase 30 CK-MB (CK-2) < 0.22 Troponin I < 0.012 NT-Pro-B Natriuret Pep Impressions: Chest X-Ray 12/10/18 20:57 IMPRESSION: No acute disease. Ankle X-Ray 12/10/18 21:22 IMPRESSION: No fracture. Assessment & Plan - Diagnosis (1) Pre-syncope Is this a current diagnosis for this admission?: Yes Plan: History suggests simple orthostatic hypotension however confounded by fever of unknown source. Telemetry observation, IV fluid challenge, Marcel stockings and orthostatic blood pressure. Follow-up random cortisol, TSH and urine drug screen. (2) Hypotension Qualifiers: Hypotension type: orthostatic hypotension Qualified Code(s): I95.1 - Orthostatic hypotension Is this a current diagnosis for this admission?: Yes Plan: Hold sotalol (3) Congestive heart failure Qualifiers: Qualified Code(s): I50.9 - Heart failure, unspecified Is this a current diagnosis for this admission?: Yes Plan: Compensated. Continue outpatient regiment with exception of sotalol given symptoms prompting recent dose reduction (4) Sleep apnea Qualifiers: Sleep apnea type: unspecified type Qualified Code(s): G47.30 - Sleep apnea, unspecified Is this a current diagnosis for this admission?: Yes Plan: BiPAP - Time Time Spent: 50 to 70 Minutes - Inpatient Certification Medical Necessity: Need Close Monitoring Due to Risk of Patient Decompensation
[2018-12-11] MEDS: HEPARIN SOD (PORCINE) 5,000 UNIT/ML 1 ML SYRINGE SUBCUT SCH ×2 (06:24→14:19)
[2018-12-11] MEDS: IPRATROPIUM/ALBUTEROL 0.5-2.5 MG/3 ML AMPUL NEB SCH ×3 (08:22→23:54)
--- NOTE | 2018-12-11 09:22 | EKG REPORT ---
SEVERITY:- ABNORMAL ECG - ATRIAL-SENSED VENTRICULAR-PACED RHYTHM : Confirmed by: Ilya Layne 11-Dec-2018 09:21:54
[2018-12-11] MEDS: DOCUSATE SODIUM 100 MG CAPSULE PO SCH ×2 (09:44→17:01)
[2018-12-11 10:09] LABS: CREATINE KINASE MB < 0.22 ng/mL (<4.55); TROPONIN I < 0.012 ng/mL
[2018-12-11] MEDS ORDERED: DEXTROSE 40% GEL 15 GM TUBE PO PRN ×2 (13:50)
[2018-12-11] MEDS ORDERED: INSULIN LISPRO 100 UNIT/ML 3 ML VIAL SUBCUT PRN (13:50)
[2018-12-11] MEDS ORDERED: DEXTROSE 50%-WATER 25 GM/50 ML DISP.SYRIN IV PRN ×2 (13:50)
[2018-12-11] MEDS ORDERED: GLUCAGON,HUMAN RECOMB 1 MG INJ IM PRN (13:50)
[2018-12-11] MEDS: ACETAMINOPHEN 325 MG TABLET PO PRN (14:19)
[2018-12-11] MEDS: NORMAL SALINE 1000 ML 1,000 ML IV PRN (14:19)
[2018-12-11] MEDS ORDERED: IBUPROFEN 600 MG TABLET PO ONE (14:40)
[2018-12-11 15:44] LABS: A TYPE INFLUENZA AG NEGATIVE (NEGATIVE); B INFLUENZA AG NEGATIVE (NEGATIVE)
[2018-12-11 15:56] LABS: CREATINE KINASE MB < 0.22 ng/mL (<4.55); TROPONIN I < 0.012 ng/mL
[2018-12-11] MEDS: HYDROCODONE/ACETAMINOPHEN 7.5-325 MG TABLET PO PRN ×2 (16:19→23:21)
[2018-12-11] MEDS: SIMVASTATIN 10 MG TABLET PO SCH (21:46)
[2018-12-11] MEDS: WARFARIN SODIUM 7.5 MG TABLET PO SCH (21:46)
[2018-12-12 05:48] LABS: ABSOLUTE LYMPHOCYTES (AUTO) 1.9 10^3/uL (0.5-4.7); ABSOLUTE MONOCYTES (AUTO) 0.6 10^3/uL (0.1-1.4); ABSOLUTE NEUT (AUTO) 1.4 10^3/uL (1.7-8.2); BASOPHILS % (AUTO) 0.3 % (0-2); EOSINOPHILS % (AUTO) 0.4 % (0-6); HEMATOCRIT 33.7 % (36.0-47.0); HEMOGLOBIN 11.5 g/dL (12.0-15.5); LYMPHOCYTES % (AUTO) 49.3 % (13-45); MEAN CORPUSCULAR HEMOGLOBIN 29.1 pg (27.0-33.4); MEAN CORPUSCULAR HGB CONC 34.1 g/dL (32.0-36.0); MEAN CORPUSCULAR VOLUME 86 fl (80-97); MONOCYTES % (AUTO) 14.8 % (3-13); PLATELET COUNT 139 10^3/uL (150-450); RED BLOOD COUNT 3.94 10^6/uL (3.72-5.28); RED CELL DISTRIBUTION WIDTH 14.3 % (11.5-14.0); SEGMENTED NEUTROPHILS % (AUTO) 35.2 % (42-78); TOTAL CELLS COUNTED % (AUTO) 100 %; WHITE BLOOD COUNT 3.8 10^3/uL (4.0-10.5)
[2018-12-12 06:15] LABS: ANION GAP 9 (5-19); BLOOD UREA NITROGEN 14 mg/dL (7-20); CALCIUM 8.5 mg/dL (8.4-10.2); CARBON DIOXIDE 29 mmol/L (22-30); CHLORIDE 103 mmol/L (98-107); GLUCOSE 98 mg/dL (75-110); POTASSIUM 4.5 mmol/L (3.6-5.0); SODIUM 140.5 mmol/L (137-145)
[2018-12-12] MEDS: HYDROCODONE/ACETAMINOPHEN 7.5-325 MG TABLET PO PRN ×3 (07:42→22:49)
[2018-12-12] MEDS: IPRATROPIUM/ALBUTEROL 0.5-2.5 MG/3 ML AMPUL NEB SCH ×2 (08:11→16:45)
[2018-12-12] MEDS: DOCUSATE SODIUM 100 MG CAPSULE PO SCH ×2 (09:06→19:01)
[2018-12-12] MEDS ORDERED: (PENDING PHARMACY ID) (Warfarin Sodium 7.5 MG) PO SCH (10:00)
[2018-12-12] MEDS: NORMAL SALINE 1000 ML 1,000 ML IV PRN (13:03)
[2018-12-12] MEDS ORDERED: VANCOMYCIN HCL 0 MG in DEXTROSE 5%-WATER 250 ML IV NR (14:30)
--- NOTE | 2018-12-12 16:02 | PDOC PROGRESS REPORT ---
Subjective Progress Note for:: 12/12/18 Subjective:: This is a 63 year old female with a past medical history of sinus node dysfunction, history of AFib with bradycardia, complete heart block per patient in 1998, subsequent prior pacemaker placement (x3), diabetes, MANPREET, obesity, depression, colon cancer with hemicolectomy and congestive heart failure with an ejection fraction of 38% who presented with generalized malaise, nausea, and syncopal episodes. She was noted to have orthostatic blood pressures upon presentation. She did say she had diarrhea at home and last loose BM was yesterday morning in the ER. No acute event overnight. No recurrence of diarrhea. She does complain of left ankle pain which she likely has strained during her fall at home. She says she feels better today but she continues to have orthostatic blood pressures with standing BP in the 80/50s. She was started on fluids only at 50 cc/hr yesterday due to her diarrhea in the setting of CHF. Will increase fluids to 75 cc/hr. Reason For Visit: HYPOTENSION Physical Exam Vital Signs: Temp Pulse Resp BP Pulse Ox 97.9 F 71 18 131/63 H 99 12/12/18 12:05 12/12/18 12:05 12/12/18 12:05 12/12/18 12:05 12/12/18 12:05 Intake & Output 12/11/18 12/12/18 12/13/18 06:59 06:59 06:59 Intake Total 6540 889 3214 Output Total 350 Balance 5873 749 0196 Weight 208 lb 5.389 oz 212 lb 8.41 oz General appearance: PRESENT: no acute distress, well-developed, well-nourished Head exam: PRESENT: atraumatic, normocephalic Eye exam: PRESENT: conjunctiva pink, EOMI, PERRLA. ABSENT: scleral icterus Ear exam: PRESENT: normal external ear exam Mouth exam: PRESENT: moist, tongue midline Neck exam: ABSENT: carotid bruit, JVD, lymphadenopathy, thyromegaly Respiratory exam: PRESENT: clear to auscultation adalberto. ABSENT: rales, rhonchi, wheezes Cardiovascular exam: PRESENT: RRR. ABSENT: rubs GI/Abdominal exam: PRESENT: normal bowel sounds, soft. ABSENT: distended, guarding, mass, organolmegaly, rebound, tenderness Rectal exam: PRESENT: deferred Neurological exam: PRESENT: alert, awake, oriented to person, oriented to place, oriented to time, oriented to situation, CN II-XII grossly intact. ABSENT: motor sensory deficit Results Laboratory Results: 12/12/18 05:02 12/12/18 05:02 12/12/18 12/12/18 05:02 05:02 WBC 3.8 L RBC 3.94 Hgb 11.5 L Hct 33.7 L MCV 86 MCH 29.1 MCHC 34.1 RDW 14.3 H Plt Count 139 L Seg Neutrophils % 35.2 L Lymphocytes % 49.3 H Monocytes % 14.8 H Eosinophils % 0.4 Basophils % 0.3 Absolute Neutrophils 1.4 L Absolute Lymphocytes 1.9 Absolute Monocytes 0.6 Absolute Eosinophils 0.0 Absolute Basophils 0.0 Sodium 140.5 Potassium 4.5 Chloride 103 Carbon Dioxide 29 Anion Gap 9 BUN 14 Creatinine 0.79 Est GFR ( Amer) > 60 Est GFR (Non-Af Amer) > 60 Glucose 98 Calcium 8.5 12/10/18 12/10/18 12/10/18 21:02 21:02 21:02 Creatine Kinase 32 CK-MB (CK-2) < 0.22 Troponin I < 0.012 NT-Pro-B Natriuret Pep 457 12/11/18 12/11/18 12/11/18 03:02 03:02 09:00 Creatine Kinase 30 29 L CK-MB (CK-2) < 0.22 Troponin I < 0.012 NT-Pro-B Natriuret Pep 12/11/18 12/11/18 12/11/18 09:00 15:14 15:14 Creatine Kinase 32 CK-MB (CK-2) < 0.22 < 0.22 Troponin I < 0.012 < 0.012 NT-Pro-B Natriuret Pep Impressions: Chest X-Ray 12/10/18 20:57 IMPRESSION: No acute disease. Ankle X-Ray 12/10/18 21:22 IMPRESSION: No fracture. Assessment & Plan - Diagnosis (1) Syncope Qualifiers: Syncope type: unspecified Qualified Code(s): R55 - Syncope and collapse Is this a current diagnosis for this admission?: Yes Plan: Likely related to orthostasis. Blood pressures continue to be orthostatic. Increase IV fluids to 75 cc/hr. (2) Acute diarrhea Is this a current diagnosis for this admission?: Yes Plan: Resolved. Last episode of diarrhea was in ER yesterday. C diff was negative. IV fluids increased. - Time Time Spent with patient: 25-34 minutes
[2018-12-12] MEDS: VANCOMYCIN HCL 1,250 MG in DEXTROSE 5%-WATER 250 ML IV SCH (19:02)
[2018-12-12] MEDS: SIMVASTATIN 10 MG TABLET PO SCH (22:49)
[2018-12-12] MEDS: WARFARIN SODIUM 7.5 MG TABLET PO SCH (22:49)
[2018-12-13] MEDS: IPRATROPIUM/ALBUTEROL 0.5-2.5 MG/3 ML AMPUL NEB SCH ×3 (00:17→17:04)
[2018-12-13] MEDS: ACETAMINOPHEN 325 MG TABLET PO PRN (05:21)
[2018-12-13] MEDS: VANCOMYCIN HCL 1,250 MG in DEXTROSE 5%-WATER 250 ML IV SCH ×2 (05:21→17:21)
[2018-12-13 06:04] LABS: INTERNATIONAL RATION (INR) 1.34; PROTHROMBIN TIME 17.3 SEC (11.4-15.4)
[2018-12-13] MEDS: HYDROCODONE/ACETAMINOPHEN 7.5-325 MG TABLET PO PRN ×2 (07:38→22:27)
[2018-12-13] MEDS: NORMAL SALINE 1000 ML 1,000 ML IV PRN (08:37)
[2018-12-13] MEDS: DOCUSATE SODIUM 100 MG CAPSULE PO SCH ×2 (09:39→17:18)
[2018-12-13] MEDS: MIDODRINE HCL 5 MG TABLET PO SCH ×3 (13:56→17:18)
--- NOTE | 2018-12-13 14:02 | PDOC PROGRESS REPORT ---
Subjective Progress Note for:: 12/13/18 Subjective:: This is a 63 year old female with a past medical history of sinus node dysfunction, history of AFib with bradycardia, complete heart block per patient in 1998, subsequent prior pacemaker placement (x3), diabetes, MANPREET, obesity, depression, colon cancer with hemicolectomy and congestive heart failure with an ejection fraction of 38% who presented with generalized malaise, nausea, and syncopal episodes. She was noted to have orthostatic blood pressures upon presentation. She did say she had diarrhea at home and last loose BM was yesterday morning in the ER. No acute event overnight. No recurrence of diarrhea. Left ankle pain is better. She says continues to feels better. Her blood pressures have improved but still orthostatic, lowest one at high 90s systolic (standing) overnight compared to 80s systolic. Reason For Visit: SYNCOPE,ACUTE DIARRHEA Physical Exam Vital Signs: Temp Pulse Resp BP Pulse Ox 97.8 F 63 14 123/67 97 12/13/18 04:54 12/13/18 07:43 12/13/18 07:43 12/13/18 04:54 12/13/18 07:43 Intake & Output 12/12/18 12/13/18 12/14/18 06:59 06:59 06:59 Intake Total 736 1892 1228 Output Total 350 1750 Balance 667 402 9420 Weight 212 lb 8.41 oz 215 lb 2.738 oz General appearance: PRESENT: no acute distress, well-developed, well-nourished Head exam: PRESENT: atraumatic, normocephalic Eye exam: PRESENT: conjunctiva pink, EOMI, PERRLA. ABSENT: scleral icterus Ear exam: PRESENT: normal external ear exam Mouth exam: PRESENT: moist, tongue midline Neck exam: ABSENT: carotid bruit, JVD, lymphadenopathy, thyromegaly Respiratory exam: PRESENT: clear to auscultation adalberto. ABSENT: rales, rhonchi, wheezes Cardiovascular exam: PRESENT: irregular rhythm. ABSENT: rubs Pulses: PRESENT: normal dorsalis pedis pul GI/Abdominal exam: PRESENT: normal bowel sounds, soft. ABSENT: distended, guarding, mass, organolmegaly, rebound, tenderness Rectal exam: PRESENT: deferred Neurological exam: PRESENT: alert, awake, oriented to person, oriented to place, oriented to time, oriented to situation, CN II-XII grossly intact. ABSENT: motor sensory deficit Results Laboratory Results: 12/12/18 05:02 12/12/18 05:02 12/10/18 12/10/18 12/10/18 21:02 21:02 21:02 Creatine Kinase 32 CK-MB (CK-2) < 0.22 Troponin I < 0.012 NT-Pro-B Natriuret Pep 457 12/11/18 12/11/18 12/11/18 03:02 03:02 09:00 Creatine Kinase 30 29 L CK-MB (CK-2) < 0.22 Troponin I < 0.012 NT-Pro-B Natriuret Pep 12/11/18 12/11/18 12/11/18 09:00 15:14 15:14 Creatine Kinase 32 CK-MB (CK-2) < 0.22 < 0.22 Troponin I < 0.012 < 0.012 NT-Pro-B Natriuret Pep Impressions: Chest X-Ray 12/10/18 20:57 IMPRESSION: No acute disease. Ankle X-Ray 12/10/18 21:22 IMPRESSION: No fracture. Assessment & Plan - Diagnosis (1) Syncope Qualifiers: Syncope type: unspecified Qualified Code(s): R55 - Syncope and collapse Is this a current diagnosis for this admission?: Yes Plan: Likely related to orthostasis. Blood pressures continue to be orthostatic albeit improved from yesterday. Patient says she does have prior orthostasis and that his PCP and manufacturing test technician have been adjusting her medications. Continue IV fluids to 75 cc/hr. Appreciate cardiology input who has recommended pacemaker check as well. (2) Acute diarrhea Is this a current diagnosis for this admission?: Yes Plan: Resolved. Last episode of diarrhea was in ER on 12/11/18. C diff was negative. Continue IV fluids. (3) Atrial fibrillation Qualifiers: Atrial fibrillation type: paroxysmal Qualified Code(s): I48.0 - Paroxysmal atrial fibrillation Is this a current diagnosis for this admission?: Yes Plan: Bisoprolol on hold due to low normal blood pressures and orthostasis. Continue coumadin. - Time Time Spent with patient: 25-34 minutes
[2018-12-13] MEDS: SIMVASTATIN 10 MG TABLET PO SCH (22:28)
[2018-12-13] MEDS: WARFARIN SODIUM 7.5 MG TABLET PO SCH (22:28)
[2018-12-14] MEDS: IPRATROPIUM/ALBUTEROL 0.5-2.5 MG/3 ML AMPUL NEB SCH ×4 (00:36→23:51)
[2018-12-14] MEDS: ACETAMINOPHEN 325 MG TABLET PO PRN ×2 (04:24→16:45)
[2018-12-14] MEDS: VANCOMYCIN HCL 1,250 MG in DEXTROSE 5%-WATER 250 ML IV SCH ×2 (05:49→18:54)
[2018-12-14 06:23] LABS: PROTHROMBIN TIME 19.8 SEC (11.4-15.4)
[2018-12-14 06:45] LABS: VANCOMYCIN,TROUGH 14.7 ug/mL (5.0-20.0)
[2018-12-14] MEDS: DOCUSATE SODIUM 100 MG CAPSULE PO SCH ×2 (09:37→18:54)
[2018-12-14] MEDS: MIDODRINE HCL 5 MG TABLET PO SCH ×3 (09:37→18:54)
[2018-12-14] MEDS: HYDROCODONE/ACETAMINOPHEN 7.5-325 MG TABLET PO PRN ×2 (11:51→18:53)
--- NOTE | 2018-12-14 11:54 | PDOC PROGRESS REPORT ---
Subjective Progress Note for:: 12/14/18 Subjective:: This is a 63 year old female with a past medical history of sinus node dysfunction, history of AFib with bradycardia, complete heart block per patient in 1998, subsequent prior pacemaker placement (x3), diabetes, MANPREET, obesity, depression, colon cancer with hemicolectomy and congestive heart failure with an ejection fraction of 38% who presented with generalized malaise, nausea, and syncopal episodes. She was noted to have orthostatic blood pressures upon presentation. She did say she had diarrhea at home and last loose BM was yesterday morning in the ER. No acute event overnight. No recurrence of diarrhea. She says continues to feels better. She was started on midodrine on 12/13/18 per cardio recommendation. Her blood pressures have improved but remain orthostatic early this morning. Pacemaker interrogation pending. She denies SOB or chest pain. Reason For Visit: SYNCOPE,ACUTE DIARRHEA Physical Exam Vital Signs: Temp Pulse Resp BP Pulse Ox 97.3 F 72 14 137/62 H 96 12/14/18 04:22 12/14/18 07:53 12/14/18 07:53 12/14/18 04:22 12/14/18 07:53 Intake & Output 12/13/18 12/14/18 12/15/18 06:59 06:59 06:59 Intake Total 1892 1478 250 Output Total 1750 2400 Balance 142 -922 250 Weight 215 lb 2.738 oz 214 lb 11.684 oz General appearance: PRESENT: no acute distress, well-developed, well-nourished Head exam: PRESENT: atraumatic, normocephalic Eye exam: PRESENT: conjunctiva pink, EOMI, PERRLA. ABSENT: scleral icterus Ear exam: PRESENT: normal external ear exam Mouth exam: PRESENT: moist, tongue midline Neck exam: ABSENT: carotid bruit, JVD, lymphadenopathy, thyromegaly Respiratory exam: PRESENT: clear to auscultation adalberto. ABSENT: rales, rhonchi, wheezes Cardiovascular exam: PRESENT: irregular rhythm. ABSENT: bradycardia, clicks GI/Abdominal exam: PRESENT: normal bowel sounds, soft. ABSENT: distended, guarding, mass, organolmegaly, rebound, tenderness Rectal exam: PRESENT: deferred Neurological exam: PRESENT: alert, awake, oriented to person, oriented to place, oriented to time, oriented to situation, CN II-XII grossly intact. ABSENT: motor sensory deficit Results Laboratory Results: 12/12/18 05:02 12/14/18 05:45 12/14/18 05:45 Creatinine 0.64 Est GFR ( Amer) > 60 Est GFR (Non-Af Amer) > 60 12/10/18 23:22 Catheterized Urine Urine Culture - Final NO GROWTH 2 DAYS 12/10/18 12/10/18 12/10/18 21:02 21:02 21:02 Creatine Kinase 32 CK-MB (CK-2) < 0.22 Troponin I < 0.012 NT-Pro-B Natriuret Pep 457 12/11/18 12/11/18 12/11/18 03:02 03:02 09:00 Creatine Kinase 30 29 L CK-MB (CK-2) < 0.22 Troponin I < 0.012 NT-Pro-B Natriuret Pep 12/11/18 12/11/18 12/11/18 09:00 15:14 15:14 Creatine Kinase 32 CK-MB (CK-2) < 0.22 < 0.22 Troponin I < 0.012 < 0.012 NT-Pro-B Natriuret Pep Impressions: Chest X-Ray 12/10/18 20:57 IMPRESSION: No acute disease. Ankle X-Ray 12/10/18 21:22 IMPRESSION: No fracture. Assessment & Plan - Diagnosis (1) Syncope Qualifiers: Syncope type: unspecified Qualified Code(s): R55 - Syncope and collapse Is this a current diagnosis for this admission?: Yes Plan: Likely related to orthostasis. Blood pressures continue to be orthostatic. Patient says she does have prior orthostasis and that his PCP and development lead have been adjusting her medications. Appreciate cardio recommendations. Started on midodrine 2.5 mg tid yesterday 12/13/18. Awaiting pacemaker interrogation. Continue IV fluids at 75 cc/hr. (2) Acute diarrhea Is this a current diagnosis for this admission?: Yes Plan: Resolved. Last episode of diarrhea was in ER on 12/11/18. C diff was negative. Continue IV fluids. (3) Atrial fibrillation Qualifiers: Atrial fibrillation type: paroxysmal Qualified Code(s): I48.0 - Paroxysmal atrial fibrillation Is this a current diagnosis for this admission?: Yes Plan: Bisoprolol on hold due to low normal blood pressures and orthostasis. Continue coumadin. - Time Time Spent with patient: 25-34 minutes
[2018-12-14] MEDS: SIMVASTATIN 10 MG TABLET PO SCH (22:26)
[2018-12-14] MEDS: WARFARIN SODIUM 7.5 MG TABLET PO SCH (22:27)
[2018-12-15] MEDS: VANCOMYCIN HCL 1,250 MG in DEXTROSE 5%-WATER 250 ML IV SCH (05:41)
[2018-12-15] MEDS: HYDROCODONE/ACETAMINOPHEN 7.5-325 MG TABLET PO PRN ×2 (05:47→14:14)
[2018-12-15 06:38] LABS: INTERNATIONAL RATION (INR) 1.88; PROTHROMBIN TIME 22.5 SEC (11.4-15.4)
[2018-12-15] MEDS: IPRATROPIUM/ALBUTEROL 0.5-2.5 MG/3 ML AMPUL NEB SCH ×2 (08:31→16:44)
[2018-12-15] MEDS: MIDODRINE HCL 5 MG TABLET PO SCH ×2 (09:25→14:14)
[2018-12-15] MEDS: DOCUSATE SODIUM 100 MG CAPSULE PO SCH (09:25)
[2018-12-15 15:00] VITALS: BP 144/62
--- NOTE | 2018-12-15 19:34 | PDOC DISCHARGE SUMMARY ---
General - Admit/Disc Date/PCP Admission Date/Primary Care Provider: 12/11/18 01:55 Discharge Date: 12/15/18 - Discharge Diagnosis (1) Syncope Is this a current diagnosis for this admission?: Yes (2) Acute diarrhea Is this a current diagnosis for this admission?: Yes (3) Atrial fibrillation Is this a current diagnosis for this admission?: Yes - Additional Information Resuscitation Status: Full Code Discharge Diet: Regular Discharge Activity: Activity As Tolerated, Balance Activity w/Rest, Keep Legs Elevated, Slowly Increase Activity Prescriptions: Midodrine HCl [Proamatine 5 mg Tablet] 2.5 mg PO TID #60 tablet Tramadol HCl [Ultram 50 mg Tablet] 50 mg PO Q6HP PRN #12 tablet PRN Reason: Home Medications: Bisoprolol Fumarate [Zebeta 5 mg Tablet] 5 mg PO DAILY 12/11/18 Metformin HCl [Glucophage 500 mg Tablet] 500 mg PO BIDBS 12/11/18 Simvastatin [Zocor 20 mg Tablet] 20 mg PO QHS 12/11/18 Warfarin Sodium [Coumadin 5 mg Tablet] 10 mg PO WE@1000 12/11/18 Warfarin Sodium [Coumadin 7.5 mg Tablet] 7.5 mg PO SUMOTUTHFRSA@1000 12/11/18 Acetaminophen [Tylenol 325 mg Tablet] 650 mg PO Q4HP PRN tablet 12/15/18 Midodrine HCl [Proamatine 5 mg Tablet] 2.5 mg PO TID #60 tablet 12/15/18 Tramadol HCl [Ultram 50 mg Tablet] 50 mg PO Q6HP PRN #12 tablet 12/15/18 History of Present Illness History of Present Illness: Admitting hospitalist's H&P: KIM SUMMERS I is a 63 year old female with a past medical history of sinus node dysfunction and subsequent permanent pacemaker placement, diabetes, DJD, obesity, depression, colon cancer with hemicolectomy and congestive heart failure with an ejection fraction of 38%. She presents with 1 week of generalized malaise, nausea, presyncopal episodesand diarrhea. She describes the feeling of passing out but waking up before she hits the floor. Denies shortness of breath, palpitations, loss of consciousness, headache, blurred vision, dysarthria or focal weakness. Today she developed a fever prompting evaluation emergency room where she has a completely unremarkable workup with exception of orthostatic hypotension. She is referred to the hospitalist for admission. Patient admits recent reduction in sotalol secondary to similar symptoms in the past. Hospital Course Hospital Course: This is a 63 year old female with a past medical history of sinus node dysfunction, history of AFib with bradycardia, complete heart block per patient in 1998, subsequent prior pacemaker placement (x3), diabetes, MANPREET, obesity, depression, colon cancer with hemicolectomy and congestive heart failure with an ejection fraction of 38% who presented with generalized malaise, nausea, and syncopal episodes. She was noted to have orthostatic blood pressures upon presentation. She did say she had diarrhea at home and last loose BM was in the ER on 12/11/18. She was stared on IV fluids with gradual improvement of her orthostasis. She was started on midodrine on 12/13/18 per cardio recommendation. Her blood pressures have improved but remain orthostatic early this morning. Pacemaker interrogation was unremarkable. Her syncopal episodes were likely related to chronic orthostasis worsened by recent diarrhea. Patient says she does have prior orthostasis and that his PCP and ornamental metal fabricator apprentice have been adjusting her medications. She will follow-up with her ornamental metal fabricator apprentice and PCP for further work-up of her chronic orthostasis. She may possible have POTS. She will continue low dose midodrine and will continue to check her BP at home. Recommended possible outpatient tilt table testing on ff- up with PCP/ornamental metal fabricator apprentice. Physical Exam Vital Signs: Temp Pulse Resp BP Pulse Ox 97.8 F 69 16 144/62 H 96 12/15/18 14:53 12/15/18 14:53 12/15/18 14:53 12/15/18 14:53 12/15/18 14:53 Intake & Output 12/14/18 12/15/18 12/16/18 06:59 06:59 06:59 Intake Total 1478 1400 250 Output Total 2400 3800 Balance -922 -2400 250 Weight 214 lb 11.684 oz 217 lb 13.067 oz General appearance: PRESENT: no acute distress, well-developed, well-nourished Head exam: PRESENT: atraumatic, normocephalic Eye exam: PRESENT: conjunctiva pink, EOMI, PERRLA. ABSENT: scleral icterus Ear exam: PRESENT: normal external ear exam Mouth exam: PRESENT: moist, tongue midline Neck exam: ABSENT: carotid bruit, JVD, lymphadenopathy, thyromegaly Respiratory exam: PRESENT: clear to auscultation adalberto. ABSENT: rales, rhonchi, wheezes Cardiovascular exam: PRESENT: RRR. ABSENT: diastolic murmur, rubs, systolic murmur Pulses: PRESENT: normal dorsalis pedis pul GI/Abdominal exam: PRESENT: normal bowel sounds, soft. ABSENT: distended, guarding, mass, organolmegaly, rebound, tenderness Rectal exam: PRESENT: deferred Neurological exam: PRESENT: alert, awake, oriented to person, oriented to place, oriented to time, oriented to situation, CN II-XII grossly intact. ABSENT: motor sensory deficit Results Laboratory Results: 12/12/18 05:02 12/14/18 05:45 12/10/18 12/10/18 12/10/18 21:02 21:02 21:02 Creatine Kinase 32 CK-MB (CK-2) < 0.22 Troponin I < 0.012 NT-Pro-B Natriuret Pep 457 12/11/18 12/11/18 12/11/18 03:02 03:02 09:00 Creatine Kinase 30 29 L CK-MB (CK-2) < 0.22 Troponin I < 0.012 NT-Pro-B Natriuret Pep 12/11/18 12/11/18 12/11/18 09:00 15:14 15:14 Creatine Kinase 32 CK-MB (CK-2) < 0.22 < 0.22 Troponin I < 0.012 < 0.012 NT-Pro-B Natriuret Pep Impressions: Chest X-Ray 12/10/18 20:57 IMPRESSION: No acute disease. Ankle X-Ray 12/10/18 21:22 IMPRESSION: No fracture. Qualifiers - * PATIENT BEING DISCHARGED WITH ANY OF THE FOLLOWING DIAGNOSIS: No, Heart Failure VTE patient discharged on overlapping Therapy?: Yes HF Pt being discharged on ACEI for LVEF less than 40%?: No Reason(s) for not prescribing ACEI:: Tx not tolerated - low nomal BP/orthostasis HF Pt being discharged on ARBS for LVEF less than 40%?: No Reason(s) for not prescribing ARBS:: Drug intolerance - low nomal BP/orthostasis HF Pt with Afib discharged with Warfarin?: Yes HF Pt discharged on evidence-based Beta Jason:: Yes
[2018-12-17] MEDS ORDERED: (PENDING PHARMACY ID) (Warfarin Sodium 10 MG) PO SCH (10:00)
[2018-12-17] MEDS ORDERED: WARFARIN SODIUM 5 MG TABLET PO SCH (22:00)
== END 2018-12-15 16:00 | disposition home or self-care (01) | DRG 312 ==
LOC: ER 19:36 → INTOOBSV 12-11 01:55 → EH 12-11 01:55 → OBSVTOIN 12-11 01:55 → 3S 12-11 11:49
PROVIDERS: ADMIT Internal Medicine; ATTEND Internal Medicine
PROC: 3E0F73Z Introduction of Anti-inflammatory into Respiratory Tract, Via Natural or Artificial Opening (ICD-10-PCS; principal; 2018-12-11)
DX: I95.1 Orthostatic hypotension (principal); R19.7 Diarrhea, unspecified; E11.9 Type 2 diabetes mellitus without complications; E66.9 Obesity, unspecified; F32.9 Major depressive disorder, single episode, unspecified; I25.10 Atherosclerotic heart disease of native coronary artery without angina pectoris; E78.00 Pure hypercholesterolemia, unspecified; G47.30 Sleep apnea, unspecified; M16.0 Bilateral primary osteoarthritis of hip; I10 Essential (primary) hypertension; I48.0 Paroxysmal atrial fibrillation; Z79.899 Other long term (current) drug therapy; Z79.01 Long term (current) use of anticoagulants; Z79.84 Long term (current) use of oral hypoglycemic drugs; Z95.0 Presence of cardiac pacemaker; Z85.038 Personal history of other malignant neoplasm of large intestine; Z90.49 Acquired absence of other specified parts of digestive tract; Z88.8 Allergy status to other drugs, medicaments and biological substances; Z80.9 Family history of malignant neoplasm, unspecified
CPT/HCPCS: 36415; 51701; 71045; 80048; 80053; 80202; 80307; 81001; 82533; 82550; 82553; 82565; 82803; 82962; 83605; 83880; 84443; 84484; 85025; 85610; 87040; 87077; 87086; 87186; 87493; 87804; 93005; 93010; 94640; 99285; G0378; J1644; J1815; J3370; J3490; J7030; J7060; J7620